=== PATIENT | male | born 1960 | race Caucasian/White ===

== ENCOUNTER 2016-07-24 15:07 | Inpatient (IN) | payer MEDICAID ==
--- NOTE | 2016-07-24 16:06 | C.PDOC ---
History Of Present Illness 55M c/o "depression." his helped provide hx- says his psych Dr Prakash changed his medication recently but it still is not working so he instructed them to come to the hospital. says he has "talking to himself." he denies any suicidal ideation. Time Seen by Provider: 07/24/16 15:41 Chief Complaint (Nursing): Psychiatric Evaluation Past Medical History Vital Signs: Last Vital Signs Temp 98 F 07/24/16 15:18 Pulse 103 H 07/24/16 15:18 Resp 24 07/24/16 16:49 BP 114/77 07/24/16 15:18 Pulse Ox 100 07/24/16 16:18 - Medical History PMH: Bipolar Disorder (on cogentin and haldol but denied), Depression, Hypercholesterolemia Denies: Diabetes, Hepatitis, HIV, HTN, Chronic Kidney Disease, Seizures, Sexually Transmitted Disease Family History: States: Unknown Family Hx - Social History Hx Alcohol Use: No Hx Substance Use: No - Immunization History Hx Tetanus Toxoid Vaccination: No Hx Influenza Vaccination: No Hx Pneumococcal Vaccination: No Review Of Systems Except As Marked, All Systems Reviewed And Found Negative. Constitutional: Negative for: Fever, Chills Eyes: Negative for: Vision Change Cardiovascular: Negative for: Chest Pain Respiratory: Negative for: Cough, Shortness of Breath Gastrointestinal: Negative for: Vomiting, Abdominal Pain Genitourinary: Negative for: Dysuria Neurological: Negative for: Weakness, Numbness, Headache Psych: Positive for: Anxiety, Depression. Negative for: Suicidal ideation Physical Exam - Physical Exam Appears: Non-toxic, No Acute Distress Skin: Warm, Dry Head: Atraumatic Eye(s): bilateral: PERRL Nose: No Epistaxis Oral Mucosa: Moist Lips: No Swelling Neck: Normal ROM Cardiovascular: Rhythm Regular Respiratory: No Decreased Breath Sounds, No Accessory Muscle Use, No Rales, No Rhonchi, No Stridor, No Wheezing Gastrointestinal/Abdominal: Soft, No Tenderness Extremity: No Swelling Neurological/Psych: Oriented x3, Other (no focal deficits) ED Course And Treatment - Laboratory Results Result Diagrams: 07/24/16 16:38 07/24/16 16:38 O2 Sat by Pulse Oximetry: 100 Medical Decision Making Medical Decision Making: cxr- nad ecg- nsr 73, nl axis, nl int, no acute ischemia Disposition - Disposition Disposition: HOSPITALIZED Disposition Time: 17:19 Condition: STABLE - Clinical Impression Clinical Impression: Depression
[2016-07-24 16:42] LABS: BASO # 0.1 K/uL (0.0-0.2); EOS # 0.3 K/uL (0.0-0.7); EOS % 3.4 % (0.0-4.0); HEMATOCRIT 46.3 % (35.0-51.0); LYMPH # 2.2 K/uL (1.0-4.3); LYMPH % 28.4 % (20.0-40.0); MEAN CELL VOLUME 84.7 fL (80.0-94.0); MEAN CORPUSCULAR HEMOGLOBIN 27.9 pg (27.0-31.0); MEAN PLATELET VOLUME 6.1 fL (7.2-11.7); MONO # 0.8 K/uL (0.0-0.8); RED CELL DISTRIBUTION WIDTH 13.6 % (11.5-14.5); WHITE BLOOD COUNT 7.9 K/uL (4.8-10.8)
--- NOTE | 2016-07-24 16:47 | RAD ---
HISTORY: psych COMPARISON: 12/12/2015 FINDINGS: LUNGS: The previously referenced small rounded nodular density at the lateral aspect of the right lower lung zone there is less conspicuous on this exam. Not aware of any a follow-up CT chest imaging as was previously referenced PLEURA: No significant pleural effusion identified, no pneumothorax apparent. CARDIOVASCULAR: Normal. OSSEOUS STRUCTURES: No significant abnormalities. VISUALIZED UPPER ABDOMEN: Normal. OTHER FINDINGS: None. IMPRESSION: No active disease.
[2016-07-24 16:50] LABS: CHLORIDE 99 mmol/L (98-107); POTASSIUM 4.5 mmol/L (3.6-5.2); SODIUM 134 mmol/L (132-148)
[2016-07-24 16:52] LABS: BILIRUBIN,TOTAL 0.7 mg/dL (0.2-1.3); GFR AFRICAN-AMERICAN > 60
[2016-07-24 16:53] LABS: ALB/GLOB RATIO 1.5 (1.0-2.1); ALKALINE PHOSPHATASE 47 U/L (38-126); ALT/SGPT 19 U/L (21-72); AST/SGOT 16 U/L (17-59); BLOOD UREA NITROGEN 18 mg/dL (9-20); CALCIUM 9.6 mg/dl (8.6-10.4); CARBON DIOXIDE 23 mmol/L (22-30); GLUCOSE,RANDOM 90 mg/dL (75-110); TOTAL PROTEIN 7.7 g/dL (6.3-8.3)
[2016-07-24 16:54] LABS: ALCOHOL SERUM < 10 mg/dl (0-10)
[2016-07-24 17:44] LABS: RBC URINE 1 /hpf (0-3); TRANSITIONAL EPITHIAL < 1 /hpf (0-3); URINE BACTERIA RARE (<OCC); URINE BILIRUBIN NEGATIVE (NEGATIVE); URINE BLOOD NEGATIVE (NEGATIVE); URINE COLOR Yellow (YELLOW); URINE GLUCOSE (UA) NORMAL (Normal); URINE KETONE NEGATIVE (NEGATIVE); URINE LEUKOCYTE ESTERASE NEG Leu/uL (Negative); URINE PROTEIN NEGATIVE (NEGATIVE); URINE UROBILINOGEN NORMAL mg/dL (0.2-1.0); WBC URINE 1 /hpf (0-5)
--- NOTE | 2016-07-25 10:02 | PCM.PSYCH ---
Initial Psychiatric Evaluation - Initial Psychiatric Evaluation Type of Admission: Voluntary Legal Status: Capacity Chief Complaint (in patient's own words): I am having bad thoughts. History of Present Illness and Precipitating Events: Patient is a 55 years old [place] male, who is and lives with his . He doesn't have any children. Patient was escorted to the hospital by because he was feeling extremely depressed, and delusional. As per the he has been taking to himself for the past 12 hours and telling himself to kill himself. Pt appeared disorganized and internally preoccupied. He remained superficially cooperative abut guarded about the details. As per the , he has not been able to sleep for the past 5 days and has been talking to himself continuously. He has become extremely depressed, isolative, and delusional since the past 2 weeks. It seems like he is having a conversation with an imaginary person. He sees Dr. Prakash every two months, most recently few weeks ago. He says the medications he is prescribing for depression, anxiety, and sleep are not working. He does not know the name of the medications. Patient feels like he wants to because he does not want to suffer anymore. He has never had any suicide attempts and has no plan. However, pt remained guarded about the voices but says he gets bad thoughts about the God. He thinks that he gets bad thoughts from devils and started reiterating about the bad thoughts. Patient was hospitalized last year to rule out interracial complications of his medical condition, neurofibromatosis. Patient denies any visual hallucinations or paranoid thoughts. Patient does not drink, smoke or use any illicit drugs. Patient denies any homicidal ideation. Allergies: denies PMH: Neurofibromatosis Current Medications: Active Medications Generic Name Dose Route Start Last Admin Trade Name Freq PRN Reason Stop Dose Admin Amitriptyline HCl 50 mg 07/24/16 22:45 07/24/16 22:55 Elavil PO Not Given HS RICHI Aripiprazole 5 mg 07/25/16 10:00 07/25/16 09:59 Abilify PO 5 mg DAILY RICHI Administration Clonazepam 0.5 mg 07/25/16 10:00 07/25/16 09:59 Klonopin PO 0.5 mg BID RICHI Administration Hydroxyzine HCl 25 mg 07/24/16 22:32 Atarax PO Q4H PRN Anxiety Ibuprofen 600 mg 07/24/16 22:32 Motrin Tab PO Q6H PRN Pain, moderate (4-7) Lorazepam 1 mg 07/24/16 19:08 07/24/16 19:11 Ativan PO 1 mg Q6 PRN Administration Anxiety Trazodone HCl 50 mg 07/24/16 22:32 Desyrel PO HS PRN Insomnia Past Psychiatric History - Past Psychiatric History Previous Treatment History: None Pertinent Medical Hx (Current Medical&Sleep Prob, Allergies): Allergies Allergy/AdvReac Type Severity Reaction Status Date / Time No Known Allergies Allergy Verified 07/24/16 15:20 ALPRAZolam [Xanax] 0.25 mg PO TID PRN #10 tab 07/23/15 Simvastatin 40 mg PO HS 07/23/15 Amitriptyline [Elavil] 50 mg PO HS 07/24/16 Review of Systems - Review of Systems All systems: reviewed and no additional remarkable complaints except - Psychiatric Psychiatric: Anxiety, Auditory Hallucinations, Depression, Irritability, Paranoia, Suicidal Ideation, Visual Hallucinations Mental Status Examination - Personal Presentation Personal Presentation: Looks older than stated age - Motor Activity Motor Activity: Psychomotor Retardation - Reliability in Providing Information Reliability in Providing Information: Poor, due to alteration in thoughts, Poor , due to altered mood - Speech Speech: Disorganized - Mood Mood: Depressed, Anxious - Formal Thought Process Formal Thought Process: Hallucinations, Delusions, Paranoia, Loosening of associations - Hallucinations/Delusions Hallucinations: Visual, Auditory Delusions: Persecution - Obsessions/Compulsions Obsessions: No Compulsions: No - Cognitive Functions Orientation: Person, Place, Situation, Time Sensorium: Alert Attention/Concentration: Attentive Abstract Thinking: [place] Estimate of Intelligence: Below average Judgement: Imparied, as evidence by: Poor judgement, Imparied, as evidence by: Lack of insight into illness - Risk Risk: Suicidal, Diminished functioning - Strength & Assets Inventory Strength & Assets Inventory: Family support DSM 5 DX - DSM 5 DSM 5 Diagnosis: Major depressive disorder recurrent severe without psychotic features r/o Schizoaffective disorder depressed type - Recommended/Plan of Treatment Treatment Recommendations and Plan of Treatment: Major depressive disorder recurrent severe without psychotic features r/o Schizoaffective disorder depressed type CBT Psychoeducation Supportive therapy and group therapy Start abilify 5 mg PO QHS Start gabapentin 100 mg po tid Start trazodone 50 gm PO QHS Continue Elavil 50 mg PO QHS D/C Xanax 2 mg PO BID Neurofibromatosis Monitor signs and symptoms - Smoking Cessation Smoking Cessation Initiated: No
--- NOTE | 2016-07-26 22:01 | PCM.PYCHPN ---
Psychiatric Progress Note - Psychiatric Progress Note Patient seen today, length of contact: 16 min Patient Chief Complaint: I am feeling depressed Problems Identified/Issues Discussed: Patient seen and evaluated, chart reviewed and discussed with the nurse. Patient remained disorganized and internally preoccupied. Patient remained isolated, confined and withdrawn. Patient still appears paranoid and delusional. He reports depressed mood and at times feelings of hopelessness and helplessness. But denies any suicidal ideation or homicidal ideation. He is taking medications and denied any side effects Supportive therapy and psychoeducation were given. Medication Change: Yes (strat risperdal, increase abilify) Medical Record Reviewed: Yes Mental Status Examination - Cognitive Function Orientation: Person, Place, Situation, Time Memory: Intact Attention: WNL Concentration: Poor Association: Loose Fund of Knowledge: Poor - Mood Mood: Depressed, Anxious - Speech Speech: Soft - Formal Thought Process Formal Thought Process: Hallucinations, Delusions, Paranoia, Loosening of associations - Suicidal Ideation Suicidal Ideation: No - Homicidal Ideation Homicidal Ideation: No Goal/Treatment Plan - Goal/Treatment Plan Need for Continued Stay: Discharge may exacerbated symptoms, Severe functional impairment Progress Toward Problem(s) and Goals/Treatment Plan: Major depressive disorder recurrent severe without psychotic features r/o Schizoaffective disorder depressed type CBT Psychoeducation Supportive therapy and group therapy Increase abilify to 15 mg PO QHS Increase gabapentin 300 mg po tid trazodone 50 gm PO QHS Continue Elavil 50 mg PO QHS Start Risperdal 2 mg PO QHS Start cogentin 1 mg pO BID Neurofibromatosis Monitor signs and symptoms - Smoking Cessation Smoking Cessation Initiated: No
--- NOTE | 2016-07-27 08:44 | PCM.PYCHPN ---
Psychiatric Progress Note - Psychiatric Progress Note Patient seen today, length of contact: 16 min Patient Chief Complaint: I am feeling depressed Problems Identified/Issues Discussed: Patient seen and evaluated, chart reviewed and discussed with the nurse. As per the staff patient appeared more organized but remained internally preoccupied. Patient remained isolated, confined and withdrawn. Patient still appears paranoid and delusional. He reports improvement in his mood but remained depressed and reports poor sleep. He also reports at times anxiety and irritability but denies any denies any suicidal ideation or homicidal ideation. His taking medication and denied any side effects Supportive therapy and psychoeducation were given. Medication Change: Yes (strat risperdal, increase abilify, increase trazodone) Medical Record Reviewed: Yes Mental Status Examination - Cognitive Function Orientation: Person, Place, Situation, Time Memory: Intact Attention: WNL Concentration: Poor Association: Loose Fund of Knowledge: Poor - Mood Mood: Depressed, Anxious - Speech Speech: Soft - Formal Thought Process Formal Thought Process: Hallucinations, Delusions, Paranoia, Loosening of associations - Suicidal Ideation Suicidal Ideation: No - Homicidal Ideation Homicidal Ideation: No Goal/Treatment Plan - Goal/Treatment Plan Need for Continued Stay: Discharge may exacerbated symptoms, Severe functional impairment Progress Toward Problem(s) and Goals/Treatment Plan: Major depressive disorder recurrent severe without psychotic features r/o Schizoaffective disorder depressed type CBT Psychoeducation Supportive therapy and group therapy abilify 15 mg PO QHS gabapentin 300 mg po tid trazodone 100 gm PO QHS DC Elavil 50 mg PO QHS Risperdal 2 mg PO QHS cogentin 1 mg pO BID Neurofibromatosis Monitor signs and symptoms - Smoking Cessation Smoking Cessation Initiated: No
[2016-07-28] MEDS ORDERED: Magnesium Hydroxide Susp 30 ml UD PO PRN (17:00)
--- NOTE | 2016-07-29 09:46 | CP.PCM.CON ---
<Edy Tran - Last Filed: 07/29/16 13:45> History of Present Illness - History of Present Illness History of Present Illness: PGY2 on medicine Dr. العلي service: 55M PMHx bipolar, depression, NF and HLD was escorted to hospital by due to depression and suicidal ideation. Pt was admitted to psych floor. Per RN, pt was able to walk around and converse normally. However, this morning pt was found to exhibit generalized weakness as well as brief disorientation, where he did not remember the year. Pt later reoriented himself later and was able to answer questions appropriately. Pt was able to move his lower extremity with difficulties. Pt never had these symptoms before. Pt also complains bilateral groin pain when he is doing so. Denied chest pain, SOB, palpitations. Pt was taking Risperadole and was stopped. Pt Abilify was reduced and started Cogentin per Psych. Review of Systems - Constitutional Constitutional: Weakness. absent: Chills, Excessive Sweating, Night Sweats - EENT Eyes: absent: Change in Vision - Cardiovascular Cardiovascular: absent: Chest Pain, Dyspnea - Respiratory Respiratory: absent: Cough, Wheezing - Gastrointestinal Gastrointestinal: absent: Abdominal Pain, Constipation, Dysphagia, Nausea, Vomiting - Genitourinary Genitourinary: absent: Dysuria, Pyuria - Musculoskeletal Musculoskeletal: Back Pain, Muscle Weakness, Myalgias - Neurological Neurological: Lack of Coordination, Weakness. absent: Dizziness, Numbness Past Patient History - Infectious Disease Hx of Infectious Diseases: None - Past Medical History & Family History Past Medical History?: Yes - Past Social History Smoking Status: Never Smoked - CARDIAC Hx Hypercholesterolemia: Yes Hx Hypertension: No - PULMONARY Hx Tuberculosis: No - NEUROLOGICAL Hx Seizures: No - HEENT Hx HEENT Problems: No - RENAL Hx Chronic Kidney Disease: No - ENDOCRINE/METABOLIC Hx Endocrine Disorders: No - HEMATOLOGICAL/ONCOLOGICAL Hx Human Immunodeficiency Virus (HIV): No - INTEGUMENTARY Hx Dermatological Problems: No Other/Comment: neurofibriomotosis - MUSCULOSKELETAL/RHEUMATOLOGICAL Hx Musculoskeletal Disorders: No Hx Falls: No - GASTROINTESTINAL Hx Gastrointestinal Disorders: No - GENITOURINARY/GYNECOLOGICAL Hx Sexually Transmitted Disorders: No - PSYCHIATRIC Hx Substance Use: No - SURGICAL HISTORY Hx Surgeries: No - ANESTHESIA Hx Anesthesia: No Meds Allergies/Adverse Reactions: Allergies Allergy/AdvReac Type Severity Reaction Status Date / Time No Known Allergies Allergy Verified 07/24/16 15:20 - Medications Medications: Current Medications Aripiprazole (Abilify) 10 mg PO DAILY [facility] Benztropine Mesylate (Cogentin) 1 mg PO HS [facility] Last Admin: 07/28/16 21:45 Dose: 1 mg Clonazepam (Klonopin) 0.5 mg PO BID [facility] Last Admin: 07/28/16 17:37 Dose: 0.5 mg Gabapentin (Neurontin) 300 mg PO TID [facility] Last Admin: 07/28/16 17:38 Dose: 300 mg Hydroxyzine HCl (Atarax) 25 mg PO Q4H PRN PRN Reason: Anxiety Last Admin: 07/29/16 00:53 Dose: 25 mg Ibuprofen (Motrin Tab) 600 mg PO Q6H PRN PRN Reason: Pain, moderate (4-7) Lorazepam (Ativan) 1 mg PO Q6 PRN PRN Reason: Anxiety Last Admin: 07/24/16 19:11 Dose: 1 mg Magnesium Hydroxide (Milk Of Magnesia) 30 ml PO Q12H PRN PRN Reason: Constipation Pantoprazole Sodium (Protonix Ec Tab) 40 mg PO DAILY [facility] Trazodone HCl (Desyrel) 100 mg PO [facility] Last Admin: 07/28/16 21:45 Dose: 100 mg Physical Exam - Constitutional Appears: Non-toxic, No Acute Distress, Chronically Ill - Respiratory Exam Respiratory Exam: Clear to Auscultation Bilateral, NORMAL BREATHING PATTERN. absent: Rhonchi, Wheezes - Cardiovascular Exam Cardiovascular Exam: +S1, +S2. absent: Gallop, Rubs - GI/Abdominal Exam GI & Abdominal Exam: Normal Bowel Sounds, Soft. absent: Tenderness - Extremities Exam Extremities exam: Negative for: pedal edema, tenderness - Neurological Exam Neurological exam: Alert, Oriented x3 Additional comments: Strength 2/5 in all extremities, sensations intact - Psychiatric Exam Psychiatric exam: Flat Affect - Skin Skin Exam: Intact Additional comments: numerous neurofibromas covering his body Results - Vital Signs Recent Vital Signs: Last Vital Signs Temp 98.1 F 07/28/16 08:06 Pulse 100 H 07/28/16 18:27 Resp 18 07/28/16 08:06 BP 121/79 07/28/16 18:27 Pulse Ox 99 07/28/16 08:06 - Labs Result Diagrams: 07/29/16 11:10 07/29/16 11:10 Assessment & Plan - Assessment and Plan (Free Text) Assessment: Weakness Transfer to tele. All psych meds on hold except Ativan PRN. NS@100ml/hr. F/U CT head. F/U CBC, CMP, mg, phos, lyme titer, TSH, d dimer. Suicidal ideation 1:1 precautions. Ativan PRN. <Ángel العلي H - Last Filed: 07/30/16 07:15> Meds - Medications Medications: Current Medications Aripiprazole (Abilify) 10 mg PO DAILY [facility] Last Admin: 07/29/16 18:02 Dose: Not Given Benztropine Mesylate (Cogentin) 1 mg PO HS [facility] Last Admin: 07/28/16 21:45 Dose: 1 mg Clonazepam (Klonopin) 0.5 mg PO BID [facility] Last Admin: 07/28/16 17:37 Dose: 0.5 mg Gabapentin (Neurontin) 300 mg PO TID [facility] Last Admin: 07/28/16 17:38 Dose: 300 mg Hydroxyzine HCl (Atarax) 25 mg PO Q4H PRN PRN Reason: Anxiety Last Admin: 07/29/16 00:53 Dose: 25 mg Sodium Chloride (Sodium Chloride 0.9%) 1,000 mls @ 100 mls/hr IV .Q10H [facility] Last Admin: 07/30/16 07:04 Dose: Not Given Ibuprofen (Motrin Tab) 600 mg PO Q6H PRN PRN Reason: Pain, moderate (4-7) Last Admin: 07/29/16 23:26 Dose: 600 mg Lorazepam (Ativan) 1 mg PO Q6 PRN PRN Reason: Anxiety Last Admin: 07/24/16 19:11 Dose: 1 mg Magnesium Hydroxide (Milk Of Magnesia) 30 ml PO Q12H PRN PRN Reason: Constipation Pantoprazole Sodium (Protonix Ec Tab) 40 mg PO DAILY [facility] Last Admin: 07/29/16 18:03 Dose: 40 mg Trazodone HCl (Desyrel) 100 mg PO HS [facility] Last Admin: 07/28/16 21:45 Dose: 100 mg Results - Vital Signs Recent Vital Signs: Last Vital Signs Temp 98.6 F 07/30/16 00:00 Pulse 91 H 07/30/16 06:40 Resp 14 07/30/16 06:40 BP 121/74 07/30/16 04:39 Pulse Ox 92 L 07/29/16 19:00 - Labs Result Diagrams: 07/30/16 05:54 07/30/16 05:54 Labs: Laboratory Results - last 24 hr 07/29/16 07/29/16 07/29/16 11:10 11:10 11:10 WBC 12.9 H D RBC 5.35 Hgb 14.9 Hct 45.2 MCV 84.5 MCH 27.9 MCHC 33.0 RDW 13.6 Plt Count 316 MPV 6.1 L Neut % (Auto) 88.9 H Lymph % (Auto) 6.7 L [place] % (Auto) 3.9 Eos % (Auto) 0.1 Baso % (Auto) 0.4 Neut # 11.5 H Lymph # 0.9 L [place] # 0.5 Eos # 0.0 Baso # 0.1 Neutrophils % (Manual) 90 H Band Neutrophils % 1 Lymphocytes % (Manual) 6 L Monocytes % (Manual) 3 Toxic Granulation Present Platelet Estimate Normal Anisocytosis (manual) Slight PT INR APTT D-Dimer, Quantitative Sodium 133 Potassium 4.7 Chloride 99 Carbon Dioxide 23 Anion Gap 16 BUN 10 Creatinine 0.8 Est GFR ( Amer) > 60 Est GFR (Non-Af Amer) > 60 Random Glucose 96 Calcium 9.2 Phosphorus 3.3 Magnesium 2.1 Total Bilirubin 0.8 AST 40 ALT 22 Alkaline Phosphatase 49 Total Creatine Kinase 1247 H CK-MB (Mass) 6.10 H Troponin I, Quant < 0.0120 Total Protein 7.6 Albumin 4.5 Globulin 3.1 Albumin/Globulin Ratio 1.4 TSH 3rd Generation 2.15 07/29/16 07/30/16 07/30/16 23:40 05:54 05:54 WBC 8.5 RBC 4.82 Hgb 13.9 Hct 40.8 MCV 84.5 MCH 28.8 MCHC 34.0 RDW 13.7 Plt Count 287 MPV 6.1 L Neut % (Auto) 60.5 Lymph % (Auto) 25.6 [place] % (Auto) 8.8 Eos % (Auto) 4.1 H Baso % (Auto) 1.0 Neut # 5.1 Lymph # 2.2 [place] # 0.7 Eos # 0.3 Baso # 0.1 Neutrophils % (Manual) Band Neutrophils % Lymphocytes % (Manual) Monocytes % (Manual) Toxic Granulation Platelet Estimate Anisocytosis (manual) PT 12.0 INR 1.1 APTT 32 D-Dimer, Quantitative < 200 Sodium Potassium Chloride Carbon Dioxide Anion Gap BUN Creatinine Est GFR ( Amer) Est GFR (Non-Af Amer) Random Glucose Calcium Phosphorus Magnesium Total Bilirubin AST ALT Alkaline Phosphatase Total Creatine Kinase CK-MB (Mass) Troponin I, Quant Total Protein Albumin Globulin Albumin/Globulin Ratio [facility] 3rd Generation 07/30/16 05:54 WBC RBC Hgb Hct MCV MCH MCHC RDW Plt Count MPV Neut % (Auto) Lymph % (Auto) [place] % (Auto) Eos % (Auto) Baso % (Auto) Neut # Lymph # [place] # Eos # Baso # Neutrophils % (Manual) Band Neutrophils % Lymphocytes % (Manual) Monocytes % (Manual) Toxic Granulation Platelet Estimate Anisocytosis (manual) PT INR APTT D-Dimer, Quantitative Sodium 131 L Potassium 4.0 Chloride 100 Carbon Dioxide 21 L Anion Gap 14 BUN 12 Creatinine 0.7 L Est GFR ( Amer) > 60 Est GFR (Non-Af Amer) > 60 Random Glucose 87 Calcium 8.7 Phosphorus Magnesium Total Bilirubin 0.9 AST 134 H D ALT 43 Alkaline Phosphatase 46 Total Creatine Kinase 8831 H CK-MB (Mass) Troponin I, Quant Total Protein 6.5 Albumin 3.6 Globulin 2.9 Albumin/Globulin Ratio 1.3 [facility] 3rd [facility] Attending/Attestation - Attestation I have personally seen and examined this patient.: Yes I have fully participated in the care of the patient.: Yes I have reviewed all pertinent clinical information: Yes Notes (Text): Medical Attending: Patient was seen and examined by me. Agree with the above note by the resident. The patient was seen on 5E after we were notified that yesterday he was ambulating and participating with activites however then became bedbound for no clear reason. It does appear he was started on new medication recently in 5E so will hold these, check head CT, check lab work. Start IVF I later spoke with the patient's family at bedside. 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 They were more concerned about his depression and anxiety. They explain it has been an ongoing struggle for the patient. I explained to them that hopefully if he becomes more awake and alert after holding medications he maybe able to return to psychiatry unit. Ángel العلي
[2016-07-29] MEDS ORDERED: Sodium Chloride 0.9% 1,000 ML IV SCH (10:45)
[2016-07-29] MEDS: Sodium Chloride 0.9% 1,000 ML IV SCH (11:03)
--- NOTE | 2016-07-29 11:13 | CT ---
PROCEDURE: CT HEAD WITHOUT CONTRAST. HISTORY: new onset weakness COMPARISON: MRI brain dated 10/19/2015 TECHNIQUE: Axial computed tomography images were obtained through the head/brain without intravenous contrast. Radiation dose: Total exam DLP = 975 mGy-cm. This CT exam was performed using one or more of the following dose reduction techniques: Automated exposure control, adjustment of the mA and/or kV according to patient size, and/or use of iterative reconstruction technique. FINDINGS: HEMORRHAGE: No intracranial hemorrhage. BRAIN: Scattered focal lucencies in the subcortical and periventricular white matter suggestive for chronic microvascular ischemic change. Persistent 6 millimeter rounded hypodensity in the anterior left frontal lobe which may represent a chronic lacunar infarct. VENTRICLES: Unremarkable. No hydrocephalus. CALVARIUM: Unremarkable. PARANASAL SINUSES: Unremarkable as visualized. No significant inflammatory changes. MASTOID AIR CELLS: Unremarkable as visualized. No inflammatory changes. OTHER FINDINGS: Soft tissue nodular densities emanating from the anterior subcutaneous soft tissues measuring up to 9 millimeters. IMPRESSION: No acute intracranial abnormality. Mild chronic microvascular ischemic change. Stable 6 millimeter hypodensity in the anterior left frontal lobe which may represent chronic lacunar infarct. If focal neurologic deficit persists, consider MRI.
[2016-07-29 11:33] LABS: BASO # 0.1 K/uL (0.0-0.2); BASO % 0.4 % (0.0-2.0); EOS % 0.1 % (0.0-4.0); HEMATOCRIT 45.2 % (35.0-51.0); LYMPH # 0.9 K/uL (1.0-4.3); LYMPH % 6.7 % (20.0-40.0); MEAN CELL VOLUME 84.5 fL (80.0-94.0); MEAN CORPUSCULAR HEMOGLOBIN 27.9 pg (27.0-31.0); MEAN PLATELET VOLUME 6.1 fL (7.2-11.7); MONO # 0.5 K/uL (0.0-0.8); MONO % 3.9 % (0.0-10.0); NRBC % 0.4 % (0.0-2.0); PLATELET COUNT 316 K/uL (130-400); RED CELL DISTRIBUTION WIDTH 13.6 % (11.5-14.5)
[2016-07-29 11:36] LABS: CHLORIDE 99 mmol/L (98-107); SODIUM 133 mmol/L (132-148)
[2016-07-29 11:37] LABS: POTASSIUM 4.7 mmol/L (3.6-5.2)
[2016-07-29 11:38] LABS: GFR AFRICAN-AMERICAN > 60
[2016-07-29 11:39] LABS: ALB/GLOB RATIO 1.4 (1.0-2.1); ALKALINE PHOSPHATASE 49 U/L (38-126); ALT/SGPT 22 U/L (21-72); AST/SGOT 40 U/L (17-59); BILIRUBIN,TOTAL 0.8 mg/dL (0.2-1.3); BLOOD UREA NITROGEN 10 mg/dL (9-20); CALCIUM 9.2 mg/dl (8.6-10.4); CARBON DIOXIDE 23 mmol/L (22-30); GLUCOSE,RANDOM 96 mg/dL (75-110); MAGNESIUM 2.1 mg/dL (1.6-2.3); PHOSPHOROUS 3.3 mg/dL (2.5-4.5); TOTAL PROTEIN 7.6 g/dL (6.3-8.3); WHITE BLOOD COUNT 12.9 K/uL (4.8-10.8)
[2016-07-29 12:09] LABS: NEUTROPHIL 90 % (50-75); THYROID STIMULATING HORMONE 2.15 mIU/L (0.46-4.68); TOTAL CELLS COUNTED 100
[2016-07-29] MEDS: Pantoprazole 40 mg EC Tab PO SCH (18:03)
--- NOTE | 2016-07-29 18:15 | CARD ---
APPROVED REPORT EKG Measurement Heart [id number] <Conclusion> Normal sinus rhythm Normal ECG
[2016-07-29 23:55] LABS: INR 1.1
[2016-07-30] MEDS: Sodium Chloride 0.9% 1,000 ML IV SCH ×7 (01:29→23:00)
[2016-07-30 06:06] LABS: BASO # 0.1 K/uL (0.0-0.2); EOS # 0.3 K/uL (0.0-0.7); EOS % 4.1 % (0.0-4.0); HEMATOCRIT 40.8 % (35.0-51.0); LYMPH # 2.2 K/uL (1.0-4.3); LYMPH % 25.6 % (20.0-40.0); MEAN CELL VOLUME 84.5 fL (80.0-94.0); MEAN CORPUSCULAR HEMOGLOBIN 28.8 pg (27.0-31.0); MEAN PLATELET VOLUME 6.1 fL (7.2-11.7); MONO # 0.7 K/uL (0.0-0.8); MONO % 8.8 % (0.0-10.0); NRBC % 0.1 % (0.0-2.0); RED CELL DISTRIBUTION WIDTH 13.7 % (11.5-14.5); WHITE BLOOD COUNT 8.5 K/uL (4.8-10.8)
[2016-07-30 06:22] LABS: CHLORIDE 100 mmol/L (98-107); SODIUM 131 mmol/L (132-148)
[2016-07-30 06:24] LABS: ALB/GLOB RATIO 1.3 (1.0-2.1); ALKALINE PHOSPHATASE 46 U/L (38-126); AST/SGOT 134 U/L (17-59); BILIRUBIN,TOTAL 0.9 mg/dL (0.2-1.3); BLOOD UREA NITROGEN 12 mg/dL (9-20); CARBON DIOXIDE 21 mmol/L (22-30); GFR AFRICAN-AMERICAN > 60; TOTAL PROTEIN 6.5 g/dL (6.3-8.3)
[2016-07-30 06:25] LABS: ALT/SGPT 43 U/L (21-72); CALCIUM 8.7 mg/dl (8.6-10.4); GLUCOSE,RANDOM 87 mg/dL (75-110)
[2016-07-30] MEDS: Pantoprazole 40 mg EC Tab PO SCH (09:12)
[2016-07-30 10:40] LABS: RBC URINE 2 /hpf (0-3); URINE BILIRUBIN NEGATIVE (NEGATIVE); URINE BLOOD NEGATIVE (NEGATIVE); URINE COLOR Yellow (YELLOW); URINE GLUCOSE (UA) NORMAL (Normal); URINE HYALINE CAST 0-2 /lpf (0-2); URINE KETONE NEGATIVE (NEGATIVE); URINE LEUKOCYTE ESTERASE NEG Leu/uL (Negative); URINE PROTEIN NEGATIVE (NEGATIVE); URINE UROBILINOGEN NORMAL mg/dL (0.2-1.0); WBC URINE 1 /hpf (0-5)
--- NOTE | 2016-07-30 11:53 | CP.PCM.PN ---
<Esme Zelaya - Last Filed: 07/30/16 14:51> Subjective - Date & Time of Evaluation Date of Evaluation: 07/30/16 Time of Evaluation: 07:20 - Subjective Subjective: Patient seen and examined at bedside this morning. He was resting comfortably in bed. After waking up he was oriented. He reports weakness and pain in all extremities. He denied all other complains such a fever, chills, SOB, chest pain , palpitations. He has been able to urinate and reports his urine to be dark yellow. He is eating but very little. His was present at bedside. Objective - Vital Signs/Intake and Output Vital Signs (last 24 hours): Temp Pulse Resp BP Pulse Ox 98.6 F 91 H 14 121/74 92 L 07/30/16 00:00 07/30/16 06:40 07/30/16 06:40 07/30/16 04:39 07/29/16 19:00 Intake and Output: 07/30/16 07/30/16 06:59 18:59 Intake Total 1318 Balance 1318 - Medications Medications: Current Medications Aripiprazole (Abilify) 10 mg PO DAILY [facility] Last Admin: 07/29/16 18:02 Dose: Not Given Benztropine Mesylate (Cogentin) 1 mg PO HS [facility] Last Admin: 07/28/16 21:45 Dose: 1 mg Clonazepam (Klonopin) 0.5 mg PO BID [facility] Last Admin: 07/28/16 17:37 Dose: 0.5 mg Gabapentin (Neurontin) 300 mg PO TID [facility] Last Admin: 07/28/16 17:38 Dose: 300 mg Hydroxyzine HCl (Atarax) 25 mg PO Q4H PRN PRN Reason: Anxiety Last Admin: 07/29/16 00:53 Dose: 25 mg Sodium Chloride (Sodium Chloride 0.9%) 1,000 mls @ 200 mls/hr IV .Q5H [facility] Last Admin: 07/30/16 08:00 Dose: 200 mls/hr Ibuprofen (Motrin Tab) 600 mg PO Q6H PRN PRN Reason: Pain, moderate (4-7) Last Admin: 07/29/16 23:26 Dose: 600 mg Lorazepam (Ativan) 1 mg PO Q6 PRN PRN Reason: Anxiety Last Admin: 07/24/16 19:11 Dose: 1 mg Magnesium Hydroxide (Milk Of Magnesia) 30 ml PO Q12H PRN PRN Reason: Constipation Pantoprazole Sodium (Protonix Ec Tab) 40 mg PO DAILY [facility] Last Admin: 07/30/16 09:12 Dose: 40 mg Trazodone HCl (Desyrel) 100 mg PO HS [facility] Last Admin: 07/28/16 21:45 Dose: 100 mg - Labs Labs: 07/30/16 05:54 07/30/16 05:54 PT 12.0 SECONDS (9.7-12.2) 07/29/16 23:40 INR 1.1 07/29/16 23:40 APTT 32 SECONDS (21-34) 07/29/16 23:40 - Constitutional Appears: Non-toxic, No Acute Distress - Head Exam Head Exam: ATRAUMATIC, NORMAL INSPECTION - Eye Exam Eye Exam: EOMI, PERRL - ENT Exam ENT Exam: Mucous Membranes Moist - Respiratory Exam Respiratory Exam: Clear to Ausculation Bilateral, NORMAL BREATHING PATTERN. absent: Accessory Muscle Use, Rales, Wheezes, Respiratory Distress - Cardiovascular Exam Cardiovascular Exam: REGULAR RHYTHM, +S1, +S2 - GI/Abdominal Exam GI & Abdominal Exam: Soft, Normal Bowel Sounds. absent: Distended, Firm, Guarding, Tenderness - Extremities Exam Extremities Exam: Normal Inspection. absent: Tenderness - Back Exam Back Exam: NORMAL INSPECTION. absent: CVA tenderness (L), CVA tenderness (R), paraspinal tenderness - Neurological Exam Neurological Exam: Alert, Awake, Oriented x3 Neuro motor strength exam: Left Upper Extremity: 3, Right Upper Extremity: 3, Left Lower Extremity: 3, Right Lower Extremity: 3 - Psychiatric Exam Psychiatric exam: Normal Affect, Normal Mood - Skin Skin Exam: Dry, Intact, Normal Color, Warm Additional comments: many skin nodules Assessment and Plan - Assessment and Plan (Free Text) Assessment: Rhabdomyolysis CPK elevating 8831 up from 1247, will repeat this afternoon All psych meds on hold except Ativan PRN - likely medication induced NS@200 mls/hour CT head - no acute intracranial abnormality, mild microvascular iacemic changes , stable 6 mm hypodensity in the anterior left frontal lobe which 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 Ativan PRN. Per psych management, Dr. Deng <Ángel العلي H - Last Filed: 07/30/16 16:10> Objective - Vital Signs/Intake and Output Vital Signs (last 24 hours): Temp Pulse Resp BP Pulse Ox 98.2 F 82 20 120/64 99 07/30/16 12:00 07/30/16 12:00 07/30/16 12:00 07/30/16 12:00 07/30/16 12:00 Intake and Output: 07/30/16 07/30/16 06:59 18:59 Intake Total 1318 2120 Balance 1318 2120 - Medications Medications: Current Medications Aripiprazole (Abilify) 10 mg PO DAILY [facility] Last Admin: 07/29/16 18:02 Dose: Not Given Benztropine Mesylate (Cogentin) 1 mg PO HS [facility] Last Admin: 07/28/16 21:45 Dose: 1 mg Clonazepam (Klonopin) 0.5 mg PO BID [facility] Last Admin: 07/28/16 17:37 Dose: 0.5 mg Gabapentin (Neurontin) 300 mg PO TID [facility] Last Admin: 07/28/16 17:38 Dose: 300 mg Heparin Sodium (Porcine) (Heparin) 5,000 units SC Q12 [facility] Last Admin: 07/30/16 12:22 Dose: 5,000 units Hydroxyzine HCl (Atarax) 25 mg PO Q4H PRN PRN Reason: Anxiety Last Admin: 07/29/16 00:53 Dose: 25 mg Sodium Chloride (Sodium Chloride 0.9%) 1,000 mls @ 200 mls/hr IV .Q5H [facility] Last Admin: 07/30/16 14:40 Dose: 200 mls/hr Ibuprofen (Motrin Tab) 600 mg PO Q6H PRN PRN Reason: Pain, moderate (4-7) Last Admin: 07/29/16 23:26 Dose: 600 mg Lorazepam (Ativan) 1 mg PO Q6 PRN PRN Reason: Anxiety Last Admin: 07/24/16 19:11 Dose: 1 mg Magnesium Hydroxide (Milk Of Magnesia) 30 ml PO Q12H PRN PRN Reason: Constipation Pantoprazole Sodium (Protonix Ec Tab) 40 mg PO DAILY [facility] Last Admin: 07/30/16 09:12 Dose: 40 mg Trazodone HCl (Desyrel) 100 mg PO HS [facility] Last Admin: 07/28/16 21:45 Dose: 100 mg - Labs Labs: 07/30/16 05:54 07/30/16 05:54 PT 12.0 SECONDS (9.7-12.2) 07/29/16 23:40 INR 1.1 07/29/16 23:40 APTT 32 SECONDS (21-34) 07/29/16 23:40 Attending/Attestation - Attestation I have personally seen and examined this patient.: Yes I have fully participated in the care of the patient.: Yes I have reviewed all pertinent clinical information, including history, physical exam and plan: Yes Notes (Text): Medical attending: Patient was seen and examined by me, agrees the above note by back office medical assistant. The patient's family member was at bedside. We watched him walk in the hallway, he was also able to feed himself today and he was responding to questions. The head CT that we got was negative for any acute process This is a vast improvement in his mental status and ability since yesterday when we saw him over to 5 E. His CPK was high came back at 8600, were to increase his intravenous fluids at this time. As mentioned before reporting a lot of the psychiatry medications that he was given previously. It may be that he was having some sort of adverse reaction to one of these medications leading to the high CPK as well as weakness and pain that he was having before. Thank you so much, Ángel العلي
--- NOTE | 2016-07-30 14:23 | PCM.PYCHPN ---
Psychiatric Progress Note - Psychiatric Progress Note Patient seen today, length of contact: 16 min Patient Chief Complaint: I am feeling depressed Problems Identified/Issues Discussed: Patient seen and evaluated, chart reviewed and discussed with the nurse. Patient was transferred to ICU on Saturday as pt's HR went upto 150. He reports improvement in his mood but remained depressed and remained isolated, confined and withdrawn. He also reports at times anxiety and irritability but denies any suicidal ideation or homicidal ideation. His taking medication and denied any side effects. He still appear delusional and paranoid. Supportive therapy and psychoeducation were given. Medication Change: Yes (d/c risperdal) Medical Record Reviewed: Yes Mental Status Examination - Cognitive Function Orientation: Person, Place, Situation, Time Memory: Intact Attention: WNL Concentration: Poor Association: WNL Fund of Knowledge: Poor - Mood Mood: Depressed, Anxious - Speech Speech: Soft - Formal Thought Process Formal Thought Process: Hallucinations, Delusions, Paranoia - Suicidal Ideation Suicidal Ideation: No - Homicidal Ideation Homicidal Ideation: No Goal/Treatment Plan - Goal/Treatment Plan Need for Continued Stay: Discharge may exacerbated symptoms, Severe functional impairment Progress Toward Problem(s) and Goals/Treatment Plan: Major depressive disorder recurrent severe without psychotic features r/o Schizoaffective disorder depressed type CBT Psychoeducation Supportive therapy and group therapy abilify 10 mg PO QHS gabapentin 300 mg po tid trazodone 100 gm PO QHS D/CRisperdal 2 mg PO QHS Klonopin 0.5 mg PO BID Neurofibromatosis Monitor signs and symptoms - Smoking Cessation Smoking Cessation Initiated: No
[2016-07-31] MEDS: Sodium Chloride 0.9% 1,000 ML IV SCH ×7 (05:52→21:18)
[2016-07-31 07:27] LABS: 18 KD (IGG) BAND Nonreactive; 23 KD (IGG) BAND Nonreactive; 23 KD (IGM) BAND Nonreactive; 28 KD (IGG) BAND Nonreactive; 30 KD (IGG) BAND Nonreactive; 39 KD (IGG) BAND Nonreactive; 39 KD (IGM) BAND Nonreactive; 41 KD (IGG) BAND Nonreactive; 41 KD (IGM) BAND Nonreactive; 45 KD (IGG) BAND Nonreactive; 58 KD (IGG) BAND Nonreactive; 66 KD (IGG) BAND Nonreactive; 93 KD (IGG) BAND Nonreactive; LYME DISEASE INTERP (IGG) Negative (Negative)
[2016-07-31 07:39] LABS: BASO # 0.1 K/uL (0.0-0.2); BASO % 1.2 % (0.0-2.0); EOS # 0.6 K/uL (0.0-0.7); EOS % 9.2 % (0.0-4.0); HEMATOCRIT 40.5 % (35.0-51.0); LYMPH # 2.2 K/uL (1.0-4.3); LYMPH % 34.1 % (20.0-40.0); MEAN CELL VOLUME 84.5 fL (80.0-94.0); MEAN CORPUSCULAR HEMOGLOBIN 28.4 pg (27.0-31.0); MEAN CORPUSCULAR HGB CONC 33.6 g/dL (33.0-37.0); MEAN PLATELET VOLUME 6.3 fL (7.2-11.7); MONO # 0.5 K/uL (0.0-0.8); MONO % 8.2 % (0.0-10.0); RED CELL DISTRIBUTION WIDTH 13.7 % (11.5-14.5); WHITE BLOOD COUNT 6.4 K/uL (4.8-10.8)
[2016-07-31 07:53] LABS: CHLORIDE 103 mmol/L (98-107); SODIUM 134 mmol/L (132-148)
[2016-07-31 07:55] LABS: GFR AFRICAN-AMERICAN > 60
[2016-07-31 07:56] LABS: ALB/GLOB RATIO 1.3 (1.0-2.1); ALKALINE PHOSPHATASE 40 U/L (38-126); ALT/SGPT 41 U/L (21-72); AST/SGOT 75 U/L (17-59); BILIRUBIN,TOTAL 0.7 mg/dL (0.2-1.3); BLOOD UREA NITROGEN 9 mg/dL (9-20); CARBON DIOXIDE 22 mmol/L (22-30); GLUCOSE,RANDOM 77 mg/dL (75-110); PHOSPHOROUS 3.4 mg/dL (2.5-4.5); TOTAL PROTEIN 5.9 g/dL (6.3-8.3)
--- NOTE | 2016-07-31 08:42 | RAD ---
HISTORY: fluid overload COMPARISON: 07/24/2016 FINDINGS: LUNGS: Patchy increased markings at the left lung base and medial right infrahilar region suggestive for infiltrate and or atelectasis. Bilateral hilar prominence. PLEURA: As above. CARDIOVASCULAR: Tortuous aorta. Mild cardiomegaly. OSSEOUS STRUCTURES: No significant abnormalities. VISUALIZED UPPER ABDOMEN: Colonic interposition underneath the right hemidiaphragm. OTHER FINDINGS: None. IMPRESSION: Patchy increased markings at the left lung base and medial right infrahilar region suggestive for infiltrate and or atelectasis. Bilateral hilar prominence.
[2016-07-31] MEDS: Pantoprazole 40 mg EC Tab PO SCH (11:16)
[2016-07-31] MEDS: Magnesium Oxide 400 mg Tab UD PO SCH (11:46)
--- NOTE | 2016-07-31 11:59 | CP.PCM.PN ---
Subjective - Date & Time of Evaluation Date of Evaluation: 07/31/16 Time of Evaluation: 07:00 - Subjective Subjective: Patient seen and examined at bedside this morning. He reports weakness and pain in all extremities that greatly improved since yesterday. He is now able to slowly eat and walk around. He denied all other complains such a fever, chills, SOB, cough, chest pain, palpitations. He has been able to urinate and reports his urine to be dark yellow. Objective - Vital Signs/Intake and Output Vital Signs (last 24 hours): Temp Pulse Resp BP Pulse Ox 98.3 F 83 20 116/54 L 97 07/31/16 08:19 07/31/16 08:19 07/31/16 08:19 07/31/16 08:19 07/31/16 08:19 - Medications Medications: Current Medications Aripiprazole (Abilify) 10 mg PO DAILY [facility] Last Admin: 07/29/16 18:02 Dose: Not Given Benztropine Mesylate (Cogentin) 1 mg PO HS [facility] Last Admin: 07/28/16 21:45 Dose: 1 mg Clonazepam (Klonopin) 0.5 mg PO BID [facility] Last Admin: 07/28/16 17:37 Dose: 0.5 mg Gabapentin (Neurontin) 300 mg PO TID [facility] Last Admin: 07/28/16 17:38 Dose: 300 mg Heparin Sodium (Porcine) (Heparin) 5,000 units SC Q12 [facility] Last Admin: 07/31/16 11:16 Dose: 5,000 units Hydroxyzine HCl (Atarax) 25 mg PO Q4H PRN PRN Reason: Anxiety Last Admin: 07/29/16 00:53 Dose: 25 mg Sodium Chloride (Sodium Chloride 0.9%) 1,000 mls @ 200 mls/hr IV .Q5H [facility] Last Admin: 07/31/16 11:50 Dose: 200 mls/hr Ibuprofen (Motrin Tab) 600 mg PO Q6H PRN PRN Reason: Pain, moderate (4-7) Last Admin: 07/29/16 23:26 Dose: 600 mg Lorazepam (Ativan) 1 mg PO Q6 PRN PRN Reason: Anxiety Last Admin: 07/24/16 19:11 Dose: 1 mg Magnesium Oxide (Mag-Ox) 400 mg PO DAILY [facility] Last Admin: 07/31/16 11:46 Dose: 400 mg Pantoprazole Sodium (Protonix Ec Tab) 40 mg PO DAILY [facility] Last Admin: 07/31/16 11:16 Dose: 40 mg Tramadol HCl (Ultram) 25 mg PO TID PRN PRN Reason: Pain, moderate (4-7) Trazodone HCl (Desyrel) 100 mg PO HS [facility] Last Admin: 07/28/16 21:45 Dose: 100 mg Zinc Sulfate (Zinc Sulfate 220 Mg Cap) 220 mg PO DAILY [facility] Last Admin: 07/31/16 11:46 Dose: 220 mg - Labs Labs: 07/31/16 07:10 07/31/16 07:10 PT 12.0 SECONDS (9.7-12.2) 07/29/16 23:40 INR 1.1 07/29/16 23:40 APTT 32 SECONDS (21-34) 07/29/16 23:40 - Constitutional Appears: Non-toxic, No Acute Distress - Head Exam Head Exam: ATRAUMATIC, NORMAL INSPECTION - Eye Exam Eye Exam: EOMI, Normal appearance, PERRL Pupil Exam: NORMAL ACCOMODATION - ENT Exam ENT Exam: Mucous Membranes Moist - Neck Exam Neck Exam: Normal Inspection - Respiratory Exam Respiratory Exam: Clear to Ausculation Bilateral, NORMAL BREATHING PATTERN. absent: Accessory Muscle Use, Chest Wall Tenderness, Wheezes, Respiratory Distress - Cardiovascular Exam Cardiovascular Exam: REGULAR RHYTHM, +S1, +S2 - GI/Abdominal Exam GI & Abdominal Exam: Soft, Normal Bowel Sounds. absent: Distended, Firm, Guarding, Tenderness - Extremities Exam Extremities Exam: Normal Inspection. absent: Calf Tenderness, Pedal Edema - Back Exam Back Exam: NORMAL INSPECTION. absent: CVA tenderness (L), CVA tenderness (R), paraspinal tenderness - Neurological Exam Neurological Exam: Alert, Awake, Oriented x3 Neuro motor strength exam: Left Upper Extremity: 4, Right Upper Extremity: 4, Left Lower Extremity: 4, Right Lower Extremity: 4 - Psychiatric Exam Psychiatric exam: Normal Affect, Normal Mood - Skin Skin Exam: Dry, Intact, Normal Color, Warm Additional comments: NF nodular skin changes Assessment and Plan - Assessment and Plan (Free Text) Assessment: Rhabdomyolysis vast improvement in his mental status and ability to walk today CPK decreasing to 3928 from 8831 yesterday All psych meds on hold except Ativan PRN - likely medication induced NS@200 mls/hour CT head - no acute intracranial abnormality, mild microvascular iacemic changes , stable 6 mm hypodensity in the anterior left frontal lobe which 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 Ativan PRN. Per psych management, Dr. Deng
--- NOTE | 2016-07-31 12:23 | PCM.PYCHPN ---
Psychiatric Progress Note - Psychiatric Progress Note Patient seen today, length of contact: 16 min Patient Chief Complaint: I am feeling more anxious and depressed Problems Identified/Issues Discussed: Patient seen and evaluated, chart reviewed and discussed with the nurse. Patient was transferred to [address] [place] [address]. He complains that his mood has gotten worse since being transfered and being off medications. He remains depressed and remains isolated, confined and withdrawn. He also reports at times anxiety and irritability but denies any suicidal ideation or homicidal ideation. He still appears delusional and paranoid, and worries about many things. His stated that since coming to the floor, she has not been able to stay with him at night , and this gives him a great deal of anxiety. His medications were discontinued due to prior improvement, however, he states that he felt less depressed and anxious while on his medications. Supportive therapy and psychoeducation were given. Medication Change: Yes (d/c risperdal) Medical Record Reviewed: Yes Mental Status Examination - Cognitive Function Orientation: Person, Place, Situation, Time Memory: Intact Attention: WNL Concentration: Poor Association: WNL Fund of Knowledge: Poor - Mood Mood: Depressed, Anxious - Speech Speech: Soft - Formal Thought Process Formal Thought Process: Hallucinations, Delusions, Paranoia - Suicidal Ideation Suicidal Ideation: No - Homicidal Ideation Homicidal Ideation: No Goal/Treatment Plan - Goal/Treatment Plan Need for Continued Stay: Discharge may exacerbated symptoms, Severe functional impairment Progress Toward Problem(s) and Goals/Treatment Plan: Major depressive disorder recurrent severe without psychotic features r/o Schizoaffective disorder depressed type CBT Psychoeducation Supportive therapy and group therapy abilify 10 mg PO QHS gabapentin 300 mg po tid trazodone 100 gm PO QHS D/C Risperdal 2 mg PO QHS Klonopin 0.5 mg PO BID Neurofibromatosis Monitor signs and symptoms
[2016-07-31 14:42] LABS: RBC URINE < 1 /hpf (0-3); URINE BILIRUBIN NEGATIVE (NEGATIVE); URINE BLOOD NEGATIVE (NEGATIVE); URINE COLOR Straw (YELLOW); URINE GLUCOSE (UA) NORMAL (Normal); URINE KETONE NEGATIVE (NEGATIVE); URINE LEUKOCYTE ESTERASE NEG Leu/uL (Negative); URINE PROTEIN NEGATIVE (NEGATIVE); URINE UROBILINOGEN NORMAL mg/dL (0.2-1.0); WBC URINE < 1 /hpf (0-5)
[2016-08-01 08:21] LABS: BASO # 0.1 K/uL (0.0-0.2); BASO % 1.1 % (0.0-2.0); EOS # 0.5 K/uL (0.0-0.7); EOS % 8.4 % (0.0-4.0); HEMATOCRIT 39.3 % (35.0-51.0); LYMPH # 1.7 K/uL (1.0-4.3); LYMPH % 27.8 % (20.0-40.0); MEAN CELL VOLUME 84.5 fL (80.0-94.0); MEAN CORPUSCULAR HEMOGLOBIN 28.7 pg (27.0-31.0); MEAN CORPUSCULAR HGB CONC 33.9 g/dL (33.0-37.0); MEAN PLATELET VOLUME 6.5 fL (7.2-11.7); MONO # 0.5 K/uL (0.0-0.8); MONO % 8.4 % (0.0-10.0); NRBC % 0.1 % (0.0-2.0); RED CELL DISTRIBUTION WIDTH 13.5 % (11.5-14.5); WHITE BLOOD COUNT 6.2 K/uL (4.8-10.8)
[2016-08-01 08:35] LABS: CHLORIDE 103 mmol/L (98-107)
[2016-08-01 08:36] LABS: POTASSIUM 3.8 mmol/L (3.6-5.2); SODIUM 135 mmol/L (132-148)
[2016-08-01 08:38] LABS: ALB/GLOB RATIO 1.3 (1.0-2.1); ALKALINE PHOSPHATASE 43 U/L (38-126); AST/SGOT 45 U/L (17-59); BILIRUBIN,TOTAL 0.6 mg/dL (0.2-1.3); BLOOD UREA NITROGEN 5 mg/dL (9-20); CARBON DIOXIDE 24 mmol/L (22-30); GFR AFRICAN-AMERICAN > 60
[2016-08-01 08:39] LABS: ALT/SGPT 36 U/L (21-72); CALCIUM 8.2 mg/dl (8.6-10.4); GLUCOSE,RANDOM 74 mg/dL (75-110); PHOSPHOROUS 3.3 mg/dL (2.5-4.5)
[2016-08-01] MEDS: Magnesium Oxide 400 mg Tab UD PO SCH (10:49)
[2016-08-01] MEDS: Pantoprazole 40 mg EC Tab PO SCH (10:49)
--- NOTE | 2016-08-01 11:11 | PCM.PYCHPN ---
Psychiatric Progress Note - Psychiatric Progress Note Patient seen today, length of contact: 16 min Patient Chief Complaint: I am feeling more anxious and depressed Problems Identified/Issues Discussed: Patient seen and evaluated, chart reviewed and discussed with the nurse. as per staff CPK level is trending downward. He is on IV fluids and cardiac monitoring. He remains depressed and remains isolated, confined and withdrawn. He also reports at times anxiety and irritability but denies any suicidal ideation or homicidal ideation. He still appears delusional and paranoid, and worries about many things. His was present on the bedside and she was educated and counseled. Supportive therapy and psychoeducation were given. Medication Change: Yes (d/c abilify) Medical Record Reviewed: Yes Mental Status Examination - Cognitive Function Orientation: Person, Place, Situation, Time Memory: Intact Attention: WNL Concentration: Poor Association: WNL Fund of Knowledge: Poor - Mood Mood: Depressed, Anxious - Speech Speech: Soft - Formal Thought Process Formal Thought Process: Hallucinations, Delusions, Paranoia - Suicidal Ideation Suicidal Ideation: No - Homicidal Ideation Homicidal Ideation: No Goal/Treatment Plan - Goal/Treatment Plan Need for Continued Stay: Discharge may exacerbated symptoms, Severe functional impairment Progress Toward Problem(s) and Goals/Treatment Plan: Major depressive disorder recurrent severe without psychotic features r/o Schizoaffective disorder depressed type CBT Psychoeducation Supportive therapy and group therapy DC abilify 10 mg PO QHS gabapentin 300 mg po tid trazodone 100 gm PO QHS Klonopin 0.5 mg PO BID Neurofibromatosis Monitor signs and symptoms
--- NOTE | 2016-08-01 13:39 | CP.PCM.PN ---
<Esme Zelaya - Last Filed: 08/01/16 13:35> Subjective - Date & Time of Evaluation Date of Evaluation: 08/01/16 Time of Evaluation: 07:00 - Subjective Subjective: Patient seen and examined at bedside this morning. He reports weakness and pain in all extremities that greatly improved since yesterday. He is now able to eat and walk around. He denied all other complains such a fever, chills, SOB, cough , chest pain, palpitations. Tolerating diet and having small BM. His was at bedside and anxious to have him transferred back to [facility] floor. Objective - Vital Signs/Intake and Output Vital Signs (last 24 hours): Temp Pulse Resp BP Pulse Ox 98.3 F 77 20 126/72 100 08/01/16 08:54 08/01/16 08:54 08/01/16 08:54 08/01/16 08:54 08/01/16 08:54 Intake and Output: 08/01/16 08/01/16 06:59 18:59 Intake Total 1440 Balance 1440 - Medications Medications: Current Medications Aripiprazole (Abilify) 10 mg PO DAILY COUNT [facility]CLUDES [facility] Last Admin: 07/29/16 18:02 Dose: Not Given Benztropine Mesylate (Cogentin) 1 mg PO HS COUNT [facility]CLUDES [facility] Last Admin: 07/28/16 21:45 Dose: 1 mg Clonazepam (Klonopin) 0.5 mg PO BID COUNT [facility]CLUDES [facility] Last Admin: 07/28/16 17:37 Dose: 0.5 mg Clonazepam (Klonopin) 1 mg PO BID COUNT [facility]CLUD[facility] Last Admin: 08/01/16 09:25 Dose: 1 mg Gabapentin (Neurontin) 300 mg PO TID COUNT [facility]CLUDES [facility] Last Admin: 07/28/16 17:38 Dose: 300 mg Heparin Sodium (Porcine) (Heparin) 5,000 units SC Q12 COUNT [facility]CLUDES [facility] Last Admin: 08/01/16 09:23 Dose: 5,000 units Hydroxyzine HCl (Atarax) 25 mg PO Q4H PRN PRN Reason: Anxiety Last Admin: 07/29/16 00:53 Dose: 25 mg Sodium Chloride (Sodium Chloride 0.9%) 1,000 mls @ 200 mls/hr IV .Q5H COUNT INCLUDES [facility] Last Admin: 07/31/16 21:18 Dose: 200 mls/hr Ibuprofen (Motrin Tab) 600 mg PO Q6H PRN PRN Reason: Pain, moderate (4-7) Last Admin: 07/29/16 23:26 Dose: 600 mg Lorazepam (Ativan) 1 mg PO Q6 PRN PRN Reason: Anxiety Magnesium Oxide (Mag-Ox) 400 mg PO DAILY COUNT [facility]CLUDES [facility] Last Admin: 08/01/16 10:49 Dose: 400 mg Pantoprazole Sodium (Protonix Ec Tab) 40 mg PO DAILY COUNT [facility]CLUDES [facility] Last Admin: 08/01/16 10:49 Dose: 40 mg Tramadol HCl (Ultram) 25 mg PO TID PRN PRN Reason: Pain, moderate (4-7) Trazodone HCl (Desyrel) 100 mg PO HS COUNT [facility]CLUDES [facility] Last Admin: 07/28/16 21:45 Dose: 100 mg Zinc Sulfate (Zinc Sulfate 220 Mg Cap) 220 mg PO DAILY COUNT [facility]CLUD[facility] Last Admin: 08/01/16 09:25 Dose: 220 mg - Labs Labs: 08/01/16 08:11 08/01/16 08:11 PT 12.0 SECONDS (9.7-12.2) 07/29/16 23:40 INR 1.1 07/29/16 23:40 APTT 32 SECONDS (21-34) 07/29/16 23:40 - Constitutional Appears: Non-toxic, No Acute Distress - Head Exam Head Exam: ATRAUMATIC, NORMAL INSPECTION - Eye Exam Eye Exam: EOMI, Normal appearance, PERRL Pupil Exam: NORMAL ACCOMODATION - ENT Exam ENT Exam: Mucous Membranes Moist - Neck Exam Neck Exam: Full ROM - Respiratory Exam Respiratory Exam: Clear to Ausculation Bilateral, NORMAL BREATHING PATTERN. absent: Accessory Muscle Use, Chest Wall Tenderness, Rales, Rhonchi, Wheezes, Respiratory Distress - Cardiovascular Exam Cardiovascular Exam: REGULAR RHYTHM, +S1, +S2 - GI/Abdominal Exam GI & Abdominal Exam: Soft, Normal Bowel Sounds. absent: Distended, Firm, Guarding, Tenderness - Extremities Exam Extremities Exam: Normal Inspection. absent: Calf Tenderness, Pedal Edema - Back Exam Back Exam: NORMAL INSPECTION. absent: CVA tenderness (L), CVA tenderness (R), paraspinal tenderness - Neurological Exam Neurological Exam: Alert, Awake, Oriented x3 Neuro motor strength exam: Left Upper Extremity: 4, Right Upper Extremity: 4, Left Lower Extremity: 4, Right Lower Extremity: 4 - Psychiatric Exam Psychiatric exam: Normal Affect, Normal Mood - Skin Skin Exam: Dry, Intact, Normal Color, Warm Additional comments: skin nodular changes -- chronic Assessment and Plan - Assessment and Plan (Free Text) Assessment: Rhabdomyolysis vast improvement in his mental status and ability to walk today CPK decreasing to 1588 from 3928 yesterday (highest was 8831) - trending downward All psych meds on hold except Ativan PRN - likely medication induced NS@200 mls/hour CT head - no acute intracranial abnormality, mild microvascular iacemic changes , stable 6 mm hypodensity in the anterior left frontal lobe which may represents chronic lacunar infarct DDimer - negative Trop negative UA wnl, repeat UA wnl cbc/tsh wnl 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 Ativan PRN. Per psych management, Dr. Deng Will likely transfer back to psychiatry floor tomorrow pending bed availability. <Samanta Mckenna V - Last Filed: 08/01/16 19:45> Objective - Vital Signs/Intake and Output Vital Signs (last 24 hours): Temp Pulse Resp BP Pulse Ox 98.0 F 75 20 132/78 99 08/01/16 15:00 08/01/16 15:00 08/01/16 15:00 08/01/16 15:00 08/01/16 15:00 - Medications Medications: Current Medications Aripiprazole (Abilify) 10 mg PO DAILY COUNT INCLUDES [facility] Last Admin: 07/29/16 18:02 Dose: Not Given Benztropine Mesylate (Cogentin) 1 mg PO HS COUNT INCLUDES [facility] Last Admin: 07/28/16 21:45 Dose: 1 mg Clonazepam (Klonopin) 0.5 mg PO BID COUNT INCLUDES [facility] Last Admin: 07/28/16 17:37 Dose: 0.5 mg Clonazepam (Klonopin) 1 mg PO BID COUNT [facility]CLUD[facility] Last Admin: 08/01/16 18:00 Dose: 1 mg Gabapentin (Neurontin) 300 mg PO TID COUNT [facility]CLUD[facility] Last Admin: 07/28/16 17:38 Dose: 300 mg Heparin Sodium (Porcine) (Heparin) 5,000 units SC Q12 COUNT [facility]CLUDES [facility] Last Admin: 08/01/16 09:23 Dose: 5,000 units Hydroxyzine HCl (Atarax) 25 mg PO Q4H PRN PRN Reason: Anxiety Last Admin: 07/29/16 00:53 Dose: 25 mg Sodium Chloride (Sodium Chloride 0.9%) 1,000 mls @ 200 mls/hr IV .Q5H COUNT INCLUDES [facility] Last Admin: 08/01/16 15:30 Dose: 200 mls/hr Ibuprofen (Motrin Tab) 600 mg PO Q6H PRN PRN Reason: Pain, moderate (4-7) Last Admin: 07/29/16 23:26 Dose: 600 mg Lorazepam (Ativan) 1 mg PO Q6 PRN PRN Reason: Anxiety Last Admin: 08/01/16 16:20 Dose: 1 mg Magnesium Oxide (Mag-Ox) 400 mg PO DAILY COUNT [facility]CLUDES [facility] Last Admin: 08/01/16 10:49 Dose: 400 mg Pantoprazole Sodium (Protonix Ec Tab) 40 mg PO DAILY COUNT [facility]CLUDES [facility] Last Admin: 08/01/16 10:49 Dose: 40 mg Tramadol HCl (Ultram) 25 mg PO TID PRN PRN Reason: Pain, moderate (4-7) Trazodone HCl (Desyrel) 100 mg PO HS COUNT INCLUDES [facility] Last Admin: 07/28/16 21:45 Dose: 100 mg Zinc Sulfate (Zinc Sulfate 220 Mg Cap) 220 mg PO DAILY COUNT [facility]CLUDES [facility] Last Admin: 08/01/16 09:25 Dose: 220 mg - Labs Labs: 08/01/16 08:11 08/01/16 08:11 PT 12.0 SECONDS (9.7-12.2) 07/29/16 23:40 INR 1.1 07/29/16 23:40 APTT 32 SECONDS (21-34) 07/29/16 23:40 Attending/Attestation - Attestation I have personally seen and examined this patient.: Yes I have fully participated in the care of the patient.: Yes I have reviewed all pertinent clinical information, including history, physical exam and plan: Yes Notes (Text): Patient seen, examined, and case discussed with day-time resident. Patient seen at bedside with at bedside. Patient is clinically depressed reporting mild muscle aches and pains secondary to rhabdomyolsis. Patient is currently on IV fluids and CPK is downtrending. Will continue IV fluids and monitor CPK (~400) given that IV fluids cannot be given on . Possible transfer tomorrow to [facility] pending cpk level. Assessment/Plan 1) Rhabdomyolysis * vast improvement in his mental status and ability to walk today * CPK decreasing to 1588 from 3928 yesterday (highest was 8831) - trending downward * All psych meds on hold except Ativan PRN - likely medication induced * NS@200 mls/hour * CT head - no acute intracranial abnormality, mild microvascular iacemic changes, stable 6 mm hypodensity in the anterior left frontal lobe which may represents chronic lacunar infarct * DDimer - negative * Trop negative * UA wnl, repeat UA wnl * cbc/tsh wnl * f/u urine aldolase and myoglobin * Zinc 220mg PO daily and Magnesium 400mg PO daily * Ultram 25 mg PO TID prn pain 2) Depression with suicidal ideation * Klonopin 1mg PO bid * Ativan 1mg Iv Q 6hour PRn * Psychiatry (Dr. Deng) on board-->help appreciated * Held all psych medications given rhabdomyolysis 3) Prophylactic measure * Heparin 5000 units subq Q12 hours * Protonix 40mg PO daily * NS 200cc/hr Disposition * Trending CPK; continue IV fluids * possible transfer to psych tomorrow given continued improvement on cpk on IV fluids
[2016-08-01] MEDS: Sodium Chloride 0.9% 1,000 ML IV SCH ×3 (13:51→19:45)
[2016-08-01] MEDS: Tramadol 25 mg PO PRN (22:11)
[2016-08-02 08:01] LABS: BASO # 0.1 K/uL (0.0-0.2); EOS # 0.5 K/uL (0.0-0.7); EOS % 7.2 % (0.0-4.0); LYMPH # 1.7 K/uL (1.0-4.3); MEAN CELL VOLUME 84.4 fL (80.0-94.0); MEAN CORPUSCULAR HEMOGLOBIN 28.4 pg (27.0-31.0); MEAN CORPUSCULAR HGB CONC 33.7 g/dL (33.0-37.0); MEAN PLATELET VOLUME 5.9 fL (7.2-11.7); MONO # 0.6 K/uL (0.0-0.8); MONO % 8.8 % (0.0-10.0); NRBC % 0.1 % (0.0-2.0); RED CELL DISTRIBUTION WIDTH 13.8 % (11.5-14.5); WHITE BLOOD COUNT 6.6 K/uL (4.8-10.8)
[2016-08-02 08:34] LABS: CHLORIDE 102 mmol/L (98-107); POTASSIUM 3.8 mmol/L (3.6-5.2); SODIUM 135 mmol/L (132-148)
[2016-08-02 08:37] LABS: ALB/GLOB RATIO 1.3 (1.0-2.1); ALKALINE PHOSPHATASE 40 U/L (38-126); ALT/SGPT 36 U/L (21-72); AST/SGOT 34 U/L (17-59); BILIRUBIN,TOTAL 0.6 mg/dL (0.2-1.3); BLOOD UREA NITROGEN 5 mg/dL (9-20); CALCIUM 8.2 mg/dl (8.6-10.4); CARBON DIOXIDE 24 mmol/L (22-30); GFR AFRICAN-AMERICAN > 60; GLUCOSE,RANDOM 84 mg/dL (75-110); PHOSPHOROUS 3.7 mg/dL (2.5-4.5)
--- NOTE | 2016-08-02 10:00 | CP.PCM.PN ---
<Esme Zelaya - Last Filed: 08/02/16 14:02> Subjective - Date & Time of Evaluation Date of Evaluation: 08/02/16 Time of Evaluation: 07:20 - Subjective Subjective: Patient seen and examined at bedside this morning. He reports weakness and pain in all extremities that greatly improved since yesterday. He is ambulatory and able to tolerate his diet. He denied all other complains such a fever, chills, SOB, cough, chest pain, palpitations. Objective - Vital Signs/Intake and Output Vital Signs (last 24 hours): Temp Pulse Resp BP Pulse Ox 97.9 F 83 20 118/74 98 08/02/16 07:56 08/02/16 07:56 08/02/16 07:56 08/02/16 07:56 08/02/16 07:56 Intake and Output: 08/02/16 08/02/16 06:59 18:59 Intake Total 3900 Balance 3900 - Medications Medications: Current Medications Clonazepam (Klonopin) 1 mg PO BID [facility] Last Admin: 08/01/16 18:00 Dose: 1 mg Gabapentin (Neurontin) 300 mg PO TID [facility] Last Admin: 07/28/16 17:38 Dose: 300 mg Heparin Sodium (Porcine) (Heparin) 5,000 units SC Q12 [facility] Last Admin: 08/01/16 22:08 Dose: 5,000 units Hydroxyzine HCl (Atarax) 25 mg PO Q4H PRN PRN Reason: Anxiety Last Admin: 07/29/16 00:53 Dose: 25 mg Sodium Chloride (Sodium Chloride 0.9%) 1,000 mls @ 200 mls/hr IV .Q5H [facility] Last Admin: 08/01/16 19:45 Dose: 200 mls/hr Ibuprofen (Motrin Tab) 600 mg PO Q6H PRN PRN Reason: Pain, moderate (4-7) Last Admin: 07/29/16 23:26 Dose: 600 mg Lorazepam (Ativan) 1 mg PO Q6 PRN PRN Reason: Anxiety Last Admin: 08/01/16 16:20 Dose: 1 mg Magnesium Oxide (Mag-Ox) 400 mg PO DAILY [facility] Last Admin: 08/01/16 10:49 Dose: 400 mg Pantoprazole Sodium (Protonix Ec Tab) 40 mg PO DAILY [facility] Last Admin: 08/01/16 10:49 Dose: 40 mg Sertraline HCl (Zoloft) 25 mg PO DAILY [facility] Tramadol HCl (Ultram) 25 mg PO TID PRN PRN Reason: Pain, moderate (4-7) Last Admin: 08/01/16 22:11 Dose: 25 mg Trazodone HCl (Desyrel) 100 mg PO HS [facility] Last Admin: 07/28/16 21:45 Dose: 100 mg Zinc Sulfate (Zinc Sulfate 220 Mg Cap) 220 mg PO DAILY [facility] Last Admin: 08/01/16 09:25 Dose: 220 mg - Labs Labs: 08/02/16 07:53 08/02/16 07:53 PT 12.0 SECONDS (9.7-12.2) 07/29/16 23:40 INR 1.1 07/29/16 23:40 APTT 32 SECONDS (21-34) 07/29/16 23:40 - Constitutional Appears: Non-toxic, No Acute Distress - Head Exam Head Exam: NORMAL INSPECTION - Eye Exam Eye Exam: EOMI - ENT Exam ENT Exam: Mucous Membranes Moist - Respiratory Exam Respiratory Exam: Clear to Ausculation Bilateral, NORMAL BREATHING PATTERN. absent: Accessory Muscle Use, Rales, Rhonchi, Wheezes, Respiratory Distress - Cardiovascular Exam Cardiovascular Exam: REGULAR RHYTHM, +S1, +S2 - GI/Abdominal Exam GI & Abdominal Exam: Soft, Normal Bowel Sounds. absent: Distended, Firm, Guarding, Tenderness - Extremities Exam Extremities Exam: Normal Inspection - Back Exam Back Exam: NORMAL INSPECTION. absent: CVA tenderness (L), CVA tenderness (R), paraspinal tenderness - Neurological Exam Neurological Exam: Alert, Awake, Oriented x3 Neuro motor strength exam: Left Upper Extremity: 4, Right Upper Extremity: 4, Left Lower Extremity: 4, Right Lower Extremity: 4 - Psychiatric Exam Psychiatric exam: Depressed, Normal Affect - Skin Skin Exam: Dry, Intact ([place] skin changes), Normal Color, Warm Assessment and Plan - Assessment and Plan (Free Text) Assessment: Rhabdomyolysis * vast improvement in his mental status and ability to walk * CPK decreasing to 809 and 810 from 1588yesterday (highest was 8831) - trending downward * likely medication induced * NS@200 mls/hour * CT head - no acute intracranial abnormality, mild microvascular iacemic changes, stable 6 mm hypodensity in the anterior left frontal lobe which may represents chronic lacunar infarct * DDimer - negative * Trop negative * UA wnl, repeat UA wnl * cbc/tsh wnl * urine aldolase 36 * urine myoglobin <28 * Zinc 220mg PO daily and Magnesium 400mg PO daily * Ultram 25 mg PO TID prn pain Depression * with suicidal ideations on admission * Klonopin 1mg PO bid * Zoloft 25 mg PO daily * Ativan 1mg Iv Q 6hour PRn * Psychiatry (Dr. Deng) on board--> help appreciated * prn medications * Held all psych medications given rhabdomyolysis Prophylactic measure * Heparin 5000 units subq Q12 hours * Protonix 40mg PO daily * NS 200cc/hr Disposition * Will keep on medical floor until CPK lowers (goal ~400), then will consider transfer back to psychiatry floor. <Samanta Mckenna V - Last Filed: 08/02/16 20:46> Objective - Vital Signs/Intake and Output Vital Signs (last 24 hours): Temp Pulse Resp BP Pulse Ox 97.8 F 78 22 128/78 97 08/02/16 16:00 08/02/16 16:00 08/02/16 16:00 08/02/16 16:00 08/02/16 16:00 Intake and Output: 08/02/16 08/03/16 18:59 06:59 Intake Total 1600 Balance 1600 - Medications Medications: Current Medications Clonazepam (Klonopin) 1 mg PO BID [facility] Last Admin: 08/02/16 17:53 Dose: 1 mg Gabapentin (Neurontin) 300 mg PO TID [facility] Last Admin: 08/02/16 17:53 Dose: 300 mg Heparin Sodium (Porcine) (Heparin) 5,000 units SC Q12 [facility] Last Admin: 08/02/16 10:22 Dose: 5,000 units Hydroxyzine HCl (Atarax) 25 mg PO Q4H PRN PRN Reason: Anxiety Last Admin: 07/29/16 00:53 Dose: 25 mg Sodium Chloride (Sodium Chloride 0.9%) 1,000 mls @ 200 mls/hr IV .Q5H [facility] Last Admin: 08/02/16 15:55 Dose: 200 mls/hr Ibuprofen (Motrin Tab) 600 mg PO Q6H PRN PRN Reason: Pain, moderate (4-7) Last Admin: 07/29/16 23:26 Dose: 600 mg Lorazepam (Ativan) 1 mg PO Q6 PRN PRN Reason: Anxiety Last Admin: 08/01/16 16:20 Dose: 1 mg Magnesium Oxide (Mag-Ox) 400 mg PO DAILY [facility] Last Admin: 08/02/16 10:22 Dose: 400 mg Pantoprazole Sodium (Protonix Ec Tab) 40 mg PO DAILY [facility] Last Admin: 08/02/16 10:22 Dose: 40 mg Sertraline HCl (Zoloft) 25 mg PO DAILY [facility] Last Admin: 08/02/16 10:22 Dose: 25 mg Tramadol HCl (Ultram) 25 mg PO TID PRN PRN Reason: Pain, moderate (4-7) Last Admin: 08/01/16 22:11 Dose: 25 mg Trazodone HCl (Desyrel) 100 mg PO HS [facility] Last Admin: 07/28/16 21:45 Dose: 100 mg Zinc Sulfate (Zinc Sulfate 220 Mg Cap) 220 mg PO DAILY [facility] Last Admin: 08/02/16 10:22 Dose: 220 mg - Labs Labs: 08/02/16 07:53 08/02/16 07:53 PT 12.0 SECONDS (9.7-12.2) 07/29/16 23:40 INR 1.1 07/29/16 23:40 APTT 32 SECONDS (21-34) 07/29/16 23:40 Attending/Attestation - Attestation I have personally seen and examined this patient.: Yes I have fully participated in the care of the patient.: Yes I have reviewed all pertinent clinical information, including history, physical exam and plan: Yes Notes (Text): Patient seen, examined, and case discussed with day-time resident. Patient seen at bedside with at bedside. Patient is clinically depressed reporting mild muscle aches and pains secondary to rhabdomyolsis. feeding patient at bedside. Patient is currently on IV fluids and CPK is downtrending. Patient to continue IV fluids and monitor CPK (~400) given that IV fluids cannot be given on . Discussed with psych who are aware, will monitor CPK and if continues to downtrend tomorrow will likely transfer to [facility]. Assessment/Plan 1) Rhabdomyolysis * CPK decreasing to 809 * All psych meds on hold except Ativan PRN - likely medication induced * NS@200 mls/hour * CT head - no acute intracranial abnormality, mild microvascular iacemic changes, stable 6 mm hypodensity in the anterior left frontal lobe which may represents chronic lacunar infarct * DDimer - negative * Trop negative * UA wnl, repeat UA wnl * cbc/tsh wnl * f/u urine aldolase and myoglobin * Zinc 220mg PO daily and Magnesium 400mg PO daily * Ultram 25 mg PO TID prn pain 2) Depression with suicidal ideation * Klonopin 1mg PO bid * Ativan 1mg Iv Q 6hour PRn * Psychiatry (Dr. Deng) on board-->help appreciated * Held all psych medications given rhabdomyolysis * Neurontin 300mg PO tid * Zoloft 50mg PO daily 3) Prophylactic measure * Heparin 5000 units subq Q12 hours * Protonix 40mg PO daily * NS 200cc/hr Disposition * Trending CPK; continue IV fluids * possible transfer to psych tomorrow given continued improvement on cpk on IV fluids
[2016-08-02] MEDS: Magnesium Oxide 400 mg Tab UD PO SCH (10:22)
[2016-08-02] MEDS: Pantoprazole 40 mg EC Tab PO SCH (10:22)
[2016-08-02] MEDS: Sodium Chloride 0.9% 1,000 ML IV SCH ×2 (15:55→21:33)
[2016-08-03] MEDS: Sodium Chloride 0.9% 1,000 ML IV SCH ×3 (01:03→06:38)
[2016-08-03 07:15] LABS: BASO # 0.1 K/uL (0.0-0.2); EOS # 0.4 K/uL (0.0-0.7); EOS % 7.6 % (0.0-4.0); HEMATOCRIT 40.7 % (35.0-51.0); LYMPH # 1.8 K/uL (1.0-4.3); LYMPH % 31.7 % (20.0-40.0); MEAN CELL VOLUME 84.3 fL (80.0-94.0); MEAN CORPUSCULAR HEMOGLOBIN 28.7 pg (27.0-31.0); MEAN PLATELET VOLUME 5.8 fL (7.2-11.7); MONO # 0.5 K/uL (0.0-0.8); MONO % 8.6 % (0.0-10.0); WHITE BLOOD COUNT 5.6 K/uL (4.8-10.8)
[2016-08-03 07:31] LABS: CHLORIDE 102 mmol/L (98-107); POTASSIUM 3.9 mmol/L (3.6-5.2); SODIUM 135 mmol/L (132-148)
[2016-08-03 07:33] LABS: ALB/GLOB RATIO 1.2 (1.0-2.1); ALKALINE PHOSPHATASE 47 U/L (38-126); AST/SGOT 52 U/L (17-59); BILIRUBIN,TOTAL 0.5 mg/dL (0.2-1.3); CARBON DIOXIDE 25 mmol/L (22-30); GFR AFRICAN-AMERICAN > 60; TOTAL PROTEIN 6.3 g/dL (6.3-8.3)
[2016-08-03 07:34] LABS: ALT/SGPT 53 U/L (21-72); BLOOD UREA NITROGEN 4 mg/dL (9-20); CALCIUM 8.6 mg/dl (8.6-10.4); GLUCOSE,RANDOM 81 mg/dL (75-110); MAGNESIUM 2.1 mg/dL (1.6-2.3); PHOSPHOROUS 3.8 mg/dL (2.5-4.5)
[2016-08-03] MEDS: Tramadol 25 mg PO PRN (09:35)
--- NOTE | 2016-08-03 09:54 | CP.PCM.PN ---
<Esme Zelaya - Last Filed: 08/03/16 14:05> Subjective - Date & Time of Evaluation Date of Evaluation: 08/03/16 Time of Evaluation: 07:05 - Subjective Subjective: Patient seen and examined at bedside this morning. He reports minor weakness and pain in all extremities that greatly improved. He is ambulatory and able to tolerate his diet. He denied all other complains such a fever, chills, SOB, cough, chest pain, palpitations. Objective - Vital Signs/Intake and Output Vital Signs (last 24 hours): Temp Pulse Resp BP Pulse Ox 97.9 F 75 20 138/82 97 08/03/16 07:57 08/03/16 07:57 08/03/16 07:57 08/03/16 07:57 08/03/16 07:57 Intake and Output: 08/03/16 08/03/16 06:59 18:59 Intake Total 4020 Output Total 1400 Balance 2620 - Medications Medications: Current Medications Clonazepam (Klonopin) 1 mg PO BID [facility] Last Admin: 08/02/16 17:53 Dose: 1 mg Gabapentin (Neurontin) 300 mg PO TID [facility] Last Admin: 08/02/16 17:53 Dose: 300 mg Heparin Sodium (Porcine) (Heparin) 5,000 units SC Q12 [facility] Last Admin: 08/02/16 21:32 Dose: 5,000 units Hydroxyzine HCl (Atarax) 25 mg PO Q4H PRN PRN Reason: Anxiety Last Admin: 07/29/16 00:53 Dose: 25 mg Sodium Chloride (Sodium Chloride 0.9%) 1,000 mls @ 200 mls/hr IV .Q5H [facility] Last Admin: 08/03/16 06:38 Dose: 200 mls/hr Ibuprofen (Motrin Tab) 600 mg PO Q6H PRN PRN Reason: Pain, moderate (4-7) Last Admin: 07/29/16 23:26 Dose: 600 mg Lorazepam (Ativan) 1 mg PO Q6 PRN PRN Reason: Anxiety Last Admin: 08/01/16 16:20 Dose: 1 mg Magnesium Oxide (Mag-Ox) 400 mg PO DAILY [facility] Last Admin: 08/02/16 10:22 Dose: 400 mg Pantoprazole Sodium (Protonix Ec Tab) 40 mg PO DAILY [facility] Last Admin: 08/02/16 10:22 Dose: 40 mg Sertraline HCl (Zoloft) 25 mg PO DAILY [facility] Last Admin: 08/02/16 10:22 Dose: 25 mg Tramadol HCl (Ultram) 25 mg PO TID PRN PRN Reason: Pain, moderate (4-7) Last Admin: 08/01/16 22:11 Dose: 25 mg Trazodone HCl (Desyrel) 100 mg PO HS [facility] Last Admin: 08/02/16 22:05 Dose: 100 mg Zinc Sulfate (Zinc Sulfate 220 Mg Cap) 220 mg PO DAILY [facility] Last Admin: 08/02/16 10:22 Dose: 220 mg - Labs Labs: 08/03/16 07:03 08/03/16 07:03 PT 12.0 SECONDS (9.7-12.2) 07/29/16 23:40 INR 1.1 07/29/16 23:40 APTT 32 SECONDS (21-34) 07/29/16 23:40 - Constitutional Appears: Non-toxic, No Acute Distress - Head Exam Head Exam: ATRAUMATIC, NORMAL INSPECTION - Eye Exam Eye Exam: EOMI, Normal appearance, PERRL Pupil Exam: NORMAL ACCOMODATION - ENT Exam ENT Exam: Mucous Membranes Moist - Respiratory Exam Respiratory Exam: Clear to Ausculation Bilateral, NORMAL BREATHING PATTERN. absent: Accessory Muscle Use, Respiratory Distress - Cardiovascular Exam Cardiovascular Exam: REGULAR RHYTHM, +S1, +S2 - GI/Abdominal Exam GI & Abdominal Exam: Soft, Normal Bowel Sounds. absent: Distended, Firm, Guarding, Tenderness - Extremities Exam Extremities Exam: Normal Inspection. absent: Calf Tenderness - Back Exam Back Exam: NORMAL INSPECTION. absent: CVA tenderness (L), CVA tenderness (R), paraspinal tenderness - Neurological Exam Neurological Exam: Alert, Awake, Oriented x3 Neuro motor strength exam: Left Upper Extremity: 4, Right Upper Extremity: 4, Left Lower Extremity: 4, Right Lower Extremity: 4 - Psychiatric Exam Psychiatric exam: Normal Affect, Normal Mood - Skin Skin Exam: Dry, Intact, Normal Color, Warm Assessment and Plan - Assessment and Plan (Free Text) Assessment: Rhabdomyolysis * vast improvement in his mental status and ability to walk * CPK decreasing to 399 from 809 yesterday (highest was 8831) - trending downward * likely medication induced * NS@200 mls/hour - discontinued * CT head - no acute intracranial abnormality, mild microvascular iacemic changes, stable 6 mm hypodensity in the anterior left frontal lobe which may represents chronic lacunar infarct * DDimer - negative * Trop negative * UA wnl, repeat UA wnl * cbc/tsh wnl * urine aldolase 36 * urine myoglobin <28 * Zinc 220mg PO daily * Magnesium 400mg PO daily - discontinued * Ultram 25 mg PO TID prn pain Depression * with suicidal ideations on admission * Klonopin 1mg PO bid * Zoloft 25 mg PO daily * Ativan 1mg Iv Q 6hour PRn * Psychiatry (Dr. Deng) on board--> help appreciated * prn medications * Held all psych medications given rhabdomyolysis Prophylactic measure * Heparin 5000 units subq Q12 hours * Protonix 40mg PO daily * NS 200cc/hr Disposition * Will transfer back to Psychiatry floor (Dr. Deng as attending) Medicine team will sign off. Please re-consult as necessary. <Samanta Mckenna V - Last Filed: 08/03/16 23:07> Objective - Vital Signs/Intake and Output Vital Signs (last 24 hours): Temp Pulse Resp BP Pulse Ox 97.9 F 80 20 123/70 97 08/03/16 07:57 08/03/16 15:52 08/03/16 07:57 08/03/16 15:52 08/03/16 07:57 - Medications Medications: Current Medications Benztropine Mesylate (Cogentin) 1 mg PO HS [facility] Clonazepam (Klonopin) 1 mg PO BID [facility] Last Admin: 08/03/16 18:34 Dose: 1 mg Gabapentin (Neurontin) 300 mg PO TID [facility] Last Admin: 08/03/16 18:34 Dose: 300 mg Haloperidol (Haldol) 2 mg PO HS [facility] Hydroxyzine HCl (Atarax) 25 mg PO Q4H PRN PRN Reason: Anxiety Last Admin: 07/29/16 00:53 Dose: 25 mg Ibuprofen (Motrin Tab) 600 mg PO Q6H PRN PRN Reason: Pain, moderate (4-7) Last Admin: 07/29/16 23:26 Dose: 600 mg Lorazepam (Ativan) 1 mg PO Q6 PRN PRN Reason: Anxiety Last Admin: 08/01/16 16:20 Dose: 1 mg Pantoprazole Sodium (Protonix Ec Tab) 40 mg PO DAILY [facility] Last Admin: 08/03/16 10:16 Dose: 40 mg Sertraline HCl (Zoloft) 25 mg PO DAILY [facility] Last Admin: 08/03/16 10:15 Dose: 25 mg Tramadol HCl (Ultram) 25 mg PO TID PRN PRN Reason: Pain, moderate (4-7) Last Admin: 08/03/16 09:35 Dose: 25 mg Trazodone HCl (Desyrel) 100 mg PO HS [facility] Last Admin: 08/02/16 22:05 Dose: 100 mg Zinc Sulfate (Zinc Sulfate 220 Mg Cap) 220 mg PO DAILY [facility] Last Admin: 08/03/16 10:15 Dose: 220 mg - Labs Labs: 08/03/16 07:03 08/03/16 07:03 PT 12.0 SECONDS (9.7-12.2) 07/29/16 23:40 INR 1.1 07/29/16 23:40 APTT 32 SECONDS (21-34) 07/29/16 23:40 Attending/Attestation - Attestation I have personally seen and examined this patient.: Yes I have fully participated in the care of the patient.: Yes I have reviewed all pertinent clinical information, including history, physical exam and plan: Yes Notes (Text): Patient seen, examined, and case discussed with day-time resident. Patient seen on [facility] [facility] following session with physical therapist. Patient reports muscles pains are controlled. Patient's CPK improved to 399. Will discontinue IV fluids. Discussed with psych, patient to be transferred to [facility] for further management of patient's depression. Medicine team to sign off. Thank you for the consult. Please re-consult, PRN. Assessment/Plan 1) Rhabdomyolysis * CPK decreasing to 399 * All psych meds on hold except Ativan PRN - likely medication induced * NS@200 mls/hour * CT head - no acute intracranial abnormality, mild microvascular changes, stable 6 mm hypodensity in the anterior left frontal lobe which may represents chronic lacunar infarct * DDimer - negative * Trop negative * UA wnl, repeat UA wnl * cbc/tsh wnl * f/u urine aldolase and myoglobin * Zinc 220mg PO daily and Magnesium 400mg PO daily * Ultram 25 mg PO TID prn pain 2) Depression with suicidal ideation * Klonopin 1mg PO bid * Ativan 1mg Iv Q 6hour PRn * Psychiatry (Dr. Deng) on board-->help appreciated * Held all psych medications given rhabdomyolysis * Neurontin 300mg PO tid * Zoloft 50mg PO daily 3) Prophylactic measure * Heparin 5000 units subq Q12 hours * Protonix 40mg PO daily * Discontinue IV fluids Disposition * Patient is medically stable. CPK improved while on IV fluids. Discussed with psych, patient to be transferred to [facility] for further management regarding depression.
[2016-08-03] MEDS: Pantoprazole 40 mg EC Tab PO SCH (10:16)
[2016-08-03] MEDS: Magnesium Oxide 400 mg Tab UD PO SCH (10:17)
--- NOTE | 2016-08-03 15:37 | PCM.PYCHPN ---
Psychiatric Progress Note - Psychiatric Progress Note Patient seen today, length of contact: 16 min Patient Chief Complaint: I am feeling anxious Problems Identified/Issues Discussed: Patient seen and evaluated, chart reviewed and discussed with the nurse. Today patient was transferred back to [facility]. Patient reports anxiety, irritability and depressed mood. As per the staff, he remained depressed, isolated, and withdrawn. He still appears delusional and paranoid, and worries about everything. He has started taking medications and denied any side effects. Supportive therapy and psychoeducation were given. Medication Change: Yes (start Haldol) Medical Record Reviewed: Yes Mental Status Examination - Cognitive Function Orientation: Person, Place, Situation, Time Memory: Intact Attention: WNL Concentration: Poor Association: WNL Fund of Knowledge: Poor - Mood Mood: Depressed, Anxious - Speech Speech: Soft - Formal Thought Process Formal Thought Process: Hallucinations, Delusions, Paranoia - Suicidal Ideation Suicidal Ideation: No - Homicidal Ideation Homicidal Ideation: No Goal/Treatment Plan - Goal/Treatment Plan Need for Continued Stay: Discharge may exacerbated symptoms, Severe functional impairment Progress Toward Problem(s) and Goals/Treatment Plan: Major depressive disorder recurrent severe without psychotic features r/o Schizoaffective disorder depressed type CBT Psychoeducation Supportive therapy and group therapy Gabapentin 300 mg po tid trazodone 100 gm PO QHS Haldol 2 mg PO QHS Cogentin 1 mg PO QHS Klonopin 1 mg PO BID Sertraline 25 mg pO Daily Neurofibromatosis Monitor signs and symptoms - Smoking Cessation Smoking Cessation Initiated: No
[2016-08-04] MEDS: Pantoprazole 40 mg EC Tab PO SCH (10:46)
[2016-08-04 11:11] VITALS: O2SAT 99
--- NOTE | 2016-08-04 14:50 | PCM.PYCHPN ---
Psychiatric Progress Note - Psychiatric Progress Note Patient seen today, length of contact: 15 minutes Patient Chief Complaint: I'm feeling little better than before Problems Identified/Issues Discussed: Patient seen. Chart reviewed. Case discussed with staff. Issues related to illness and treatment were discussed with the patient. Patient reported compliant with treatment with no adverse affects. Patient reported feeling little better with the treatment but still has intrusive thoughts which bothers him. Reported his mood is little better but still he is isolative. Staff confirm the above. Patient was found pacing in the hallways after lunch. Patient reported he walks after eating to digest his food. Still patient appeared withdrawn. The time of evaluation, patient was awake alert oriented 3 , no auditory or visual hallucinations, no suicidal ideations or homicidal ideations. Medical Problems: Neurofibromatosis Diagnostic Results: Reviewed Medication Change: Yes (Dose of Zoloft increased to 50 mg) Medical Record Reviewed: Yes Consults ordered or reviewed: Reviewed Mental Status Examination - Cognitive Function Orientation: Person, Place, Situation, Time Memory: Intact Attention: WNL Concentration: WNL Association: [facility] Fund of Knowledge: [facility] Decription of patient's judgement and insights: Fair - Mood Mood: Depressed, Anxious - Affect Affect: Other (Appropriate) - Speech Speech: Soft - Formal Thought Process Formal Thought Process: No Impairment Psychotic Thoughts and Behaviors: None - Suicidal Ideation Suicidal Ideation: No - Homicidal Ideation Homicidal Ideation: No Goal/Treatment Plan - Goal/Treatment Plan Need for Continued Stay: Remain at risks for inpatient hospitalization, Discharge may exacerbated symptoms, Severe functional impairment Progress Toward Problem(s) and Goals/Treatment Plan: Some improvement Patient education Supportive therapy Dose of Zoloft increased to 50 mg from 25 mg Continue rest of the treatment as before Patient needs more time for stabilization Estimated Date of D/C: 08/15/18 - Smoking Cessation Smoking Cessation Initiated: No
[2016-08-04] MEDS ORDERED: Aluminum Hydroxide/Magnesium Hydroxide Susp (30 mL) PO PRN (20:11)
[2016-08-05] MEDS: Pantoprazole 40 mg EC Tab PO SCH (09:50)
--- NOTE | 2016-08-05 13:31 | PCM.PYCHPN ---
Psychiatric Progress Note - Psychiatric Progress Note Patient seen today, length of contact: 15 minutes Patient Chief Complaint: Today again I'm feeling stressed. I wants to go home Problems Identified/Issues Discussed: Patient seen. Chart reviewed. Case discussed with staff. Issues related to illness and treatment were discussed with the patient. Patient reported compliant with treatment with no adverse affects. Patient reported that today again feeling stressed as those bed and intrusive thoughts aren't bothering him today.. Reported his mood is little better but still he is isolative. Staff confirm the above. Still patient appeared withdrawn. At the time of evaluation, patient was awake alert oriented 3, no auditory or visual hallucinations, no suicidal ideations or homicidal ideations. Medical Problems: Neurofibromatosis Diagnostic Results: Reviewed DSM 5 Symptoms Update: Some improvement with treatment Medication Change: No Medical Record Reviewed: Yes Consults ordered or reviewed: Reviewed Mental Status Examination - Cognitive Function Orientation: Person, Place, Situation, Time Memory: Intact Attention: WNL Concentration: WNL Association: [facility] Fund of Knowledge: [facility] Decription of patient's judgement and insights: Fair - Mood Mood: Depressed, Anxious - Affect Affect: Other (Appropriate) - Speech Speech: Soft - Formal Thought Process Formal Thought Process: No Impairment Psychotic Thoughts and Behaviors: None - Suicidal Ideation Suicidal Ideation: No - Homicidal Ideation Homicidal Ideation: No Goal/Treatment Plan - Goal/Treatment Plan Need for Continued Stay: Remain at risks for inpatient hospitalization, Discharge may exacerbated symptoms, Severe functional impairment Progress Toward Problem(s) and Goals/Treatment Plan: Patient education Supportive therapy Continue treatment as before Patient needs more time for stabilization Estimated Date of D/C: 08/15/18 - Smoking Cessation Smoking Cessation Initiated: No
[2016-08-05] MEDS ORDERED: Bisacodyl 5mg EC Tab PO PRN (18:08)
[2016-08-05] MEDS ORDERED: Bisacodyl 5mg EC Tab PO ONE (18:13)
[2016-08-06] MEDS: Pantoprazole 40 mg EC Tab PO SCH (10:09)
--- NOTE | 2016-08-06 16:26 | PCM.PYCHPN ---
Psychiatric Progress Note - Psychiatric Progress Note Patient seen today, length of contact: 15 minutes Patient Chief Complaint: I am stressed again. Problems Identified/Issues Discussed: Patient seen. Chart reviewed. Case discussed with staff. Issues related to illness and treatment were discussed with the patient. Patient reported compliant with treatment with no adverse affects. Patient reported that today again feeling stressed as those sathish and intrusive thoughts aren't bothering him today.. Reported his mood is little better but still he is isolative. Staff confirm the above. Still patient appeared withdrawn. At the time of evaluation, patient was awake alert oriented 3, no auditory or visual hallucinations, no suicidal ideations or homicidal ideations. Medical Problems: Neurofibromatosis Diagnostic Results: Reviewed DSM 5 Symptoms Update: Some improvement with treatment Medication Change: No Medical Record Reviewed: Yes Consults ordered or reviewed: Reviewed Mental Status Examination - Cognitive Function Orientation: Person, Place, Situation, Time Memory: Intact Attention: WNL Concentration: WNL Association: [facility] Fund of Knowledge: [facility] Decription of patient's judgement and insights: Fair - Mood Mood: Depressed, Anxious - Affect Affect: Blunted - Speech Speech: Soft - Formal Thought Process Formal Thought Process: No Impairment Psychotic Thoughts and Behaviors: None - Suicidal Ideation Suicidal Ideation: No - Homicidal Ideation Homicidal Ideation: No Goal/Treatment Plan - Goal/Treatment Plan Need for Continued Stay: Remain at risks for inpatient hospitalization, Discharge may exacerbated symptoms, Severe functional impairment Progress Toward Problem(s) and Goals/Treatment Plan: Patient education Supportive therapy Continue treatment as before Patient needs more time for stabilization Estimated Date of D/C: 08/15/18 - Smoking Cessation Smoking Cessation Initiated: No
--- NOTE | 2016-08-07 08:48 | PCM.PYCHPN ---
Psychiatric Progress Note - Psychiatric Progress Note Patient seen today, length of contact: 15 minutes Patient Chief Complaint: I am feeling anxious Problems Identified/Issues Discussed: Patient seen and evaluated, chart reviewed and discussed with the nurse. Today staff reports pt is feeling stiff and his gate is abnormal. He anxiety, irritability and agitation. He also reports depressed mood, and at times feelings of hopelessness and helplessness. He reports poor sleep. He still appears delusional and paranoid, and worries about everything. He has started taking medications and denied any side effects. Supportive therapy and psychoeducation were given. Medication Change: Yes (d/c haldol) Medical Record Reviewed: Yes Mental Status Examination - Cognitive Function Orientation: Person, Place, Situation, Time Memory: Intact Attention: WNL Concentration: Poor Association: Loose Fund of Knowledge: Poor - Mood Mood: Depressed, Anxious - Affect Affect: Constricted, Blunted - Speech Speech: Soft - Formal Thought Process Formal Thought Process: Delusions, Loosening of associations - Suicidal Ideation Suicidal Ideation: No - Homicidal Ideation Homicidal Ideation: No Goal/Treatment Plan - Goal/Treatment Plan Need for Continued Stay: Remain at risks for inpatient hospitalization, Discharge may exacerbated symptoms, Severe functional impairment Progress Toward Problem(s) and Goals/Treatment Plan: Major depressive disorder recurrent severe without psychotic features r/o Schizoaffective disorder depressed type CBT Psychoeducation Supportive therapy and group therapy Gabapentin 300 mg po tid trazodone 100 gm PO QHS D/C Haldol 2 mg PO QHS D/C Cogentin 1 mg PO QHS Klonopin 1 mg PO BID Sertraline 100 mg pO Daily Neurofibromatosis Monitor signs and symptoms Estimated Date of D/C: 08/15/18 - Smoking Cessation Smoking Cessation Initiated: No
[2016-08-07] MEDS: Pantoprazole 40 mg EC Tab PO SCH (09:53)
[2016-08-08] MEDS: Pantoprazole 40 mg EC Tab PO SCH (09:59)
--- NOTE | 2016-08-08 11:40 | PCM.PYCHPN ---
Psychiatric Progress Note - Psychiatric Progress Note Patient seen today, length of contact: 15 minutes Patient Chief Complaint: I am feeling anxious Problems Identified/Issues Discussed: Patient seen and evaluated, chart reviewed and discussed with the nurse. As per the staff, patient appears less anxious and less paranoid. His gait is getting better and he is no more limping. However patient reports anxiety and irritability. He still appears a bit suspicious and delusional. He is compliant with the medications and denies any side effects. Supportive therapy and psychoeducation were given. Medication Change: Yes (decrease klonopoin, start Seroquel ) Medical Record Reviewed: Yes Mental Status Examination - Cognitive Function Orientation: Person, Place, Situation, Time Memory: Intact Attention: WNL Concentration: Poor Association: Loose Fund of Knowledge: Poor - Mood Mood: Depressed, Anxious - Affect Affect: Constricted, Blunted - Speech Speech: Soft - Formal Thought Process Formal Thought Process: Delusions, Loosening of associations - Suicidal Ideation Suicidal Ideation: No - Homicidal Ideation Homicidal Ideation: No Goal/Treatment Plan - Goal/Treatment Plan Need for Continued Stay: Remain at risks for inpatient hospitalization, Discharge may exacerbated symptoms, Severe functional impairment Progress Toward Problem(s) and Goals/Treatment Plan: Major depressive disorder recurrent severe without psychotic features r/o Schizoaffective disorder depressed type CBT Psychoeducation Supportive therapy and group therapy Gabapentin 300 mg po tid trazodone 100 gm PO QHS Klonopin 0.5 mg PO BID Sertraline 200 mg pO Daily Seroquel 50 mg hs Neurofibromatosis Monitor signs and symptoms Estimated Date of D/C: 08/15/18 - Smoking Cessation Smoking Cessation Initiated: No
[2016-08-09] MEDS: Pantoprazole 40 mg EC Tab PO SCH (09:46)
--- NOTE | 2016-08-09 09:51 | PCM.PYCHPN ---
Psychiatric Progress Note - Psychiatric Progress Note Patient seen today, length of contact: 16 min Patient Chief Complaint: 'I am feeling anxious' Problems Identified/Issues Discussed: Patient seen and evaluated, chart reviewed and discussed with the nurse. Today pt appeared delusional and suspicious. However he reports improvement in his sleep and anxiety. He remains depressed and isolated. He is confined to his bed and still complains of shakes. Today pt admitted of having bad thoughts. However he is taking medication and denies any side effects. Supportive therapy and psychoeducation were given. Medication Change: Yes (increase Seroquel, and decrease gabapentin) Medical Record Reviewed: Yes Mental Status Examination - Cognitive Function Orientation: Person, Place, Situation, Time Memory: Intact Attention: WNL Concentration: Poor Association: WNL Fund of Knowledge: Poor - Mood Mood: Depressed, Anxious - Affect Affect: Constricted, Blunted - Speech Speech: Soft - Formal Thought Process Formal Thought Process: Hallucinations, Delusions, Paranoia - Suicidal Ideation Suicidal Ideation: No - Homicidal Ideation Homicidal Ideation: No Goal/Treatment Plan - Goal/Treatment Plan Need for Continued Stay: Discharge may exacerbated symptoms, Severe functional impairment Progress Toward Problem(s) and Goals/Treatment Plan: Major depressive disorder recurrent severe with psychotic features CBT Psychoeducation Supportive therapy and group therapy Zoloft 200 mg by mouth daily gabapentin 300 mg po tid trazodone 100 gm PO QHS Klonopin 0.5 mg PO BID Seroquel 50 mg PO QHS Neurofibromatosis Monitor signs and symptoms Estimated Date of D/C: 08/15/18
--- NOTE | 2016-08-09 14:03 | PCM.PYCHPN ---
Psychiatric Progress Note - Psychiatric Progress Note Patient seen today, length of contact: 16 min Patient Chief Complaint: I am feeling more anxious and depressed Problems Identified/Issues Discussed: Patient seen and evaluated, chart reviewed and discussed with the nurse. patient still reports of anxiety and irritability. He remains depressed and isolated. He is confined to his bed and still complains of shakes. As per the , he is still complaining of bad thoughts and anxiety. he is delusional and internally preoccupied. However he is taking medication and denies any side effects. Supportive therapy and psychoeducation were given. Medication Change: Yes (start zoloft) Medical Record Reviewed: Yes Mental Status Examination - Cognitive Function Orientation: Person, Place, Situation, Time Memory: Intact Attention: WNL Concentration: Poor Association: WNL Fund of Knowledge: Poor - Mood Mood: Depressed, Anxious - Affect Affect: Constricted, Blunted - Speech Speech: Soft - Formal Thought Process Formal Thought Process: Hallucinations, Delusions, Paranoia - Suicidal Ideation Suicidal Ideation: No - Homicidal Ideation Homicidal Ideation: No Goal/Treatment Plan - Goal/Treatment Plan Need for Continued Stay: Discharge may exacerbated symptoms, Severe functional impairment Progress Toward Problem(s) and Goals/Treatment Plan: Major depressive disorder recurrent severe without psychotic features r/o Schizoaffective disorder depressed type CBT Psychoeducation Supportive therapy and group therapy Zoloft 50 mg by mouth daily gabapentin 300 mg po tid trazodone 100 gm PO QHS Klonopin 0.5 mg PO BID Neurofibromatosis Monitor signs and symptoms Estimated Date of D/C: 08/15/18
[2016-08-10] MEDS: Pantoprazole 40 mg EC Tab PO SCH (09:34)
--- NOTE | 2016-08-10 12:29 | PCM.PYCHPN ---
Psychiatric Progress Note - Psychiatric Progress Note Patient seen today, length of contact: 16 min Patient Chief Complaint: I am feeling more anxious and depressed Problems Identified/Issues Discussed: Patient seen and evaluated, chart reviewed and discussed with the nurse. As per the staff, pt regressed last night and started complaining of anxiety and irritability. He couldn't sleep last night and remained delusional and paranoid. He appeared unkempt and disheveled. However, he has started walking and reports improvement in his gait. He is taking medication and denies any side effects. Supportive therapy and psychoeducation were given. Medication Change: Yes (increase Seroquel, and increase gabapentin) Medical Record Reviewed: Yes Mental Status Examination - Cognitive Function Orientation: Person, Place, Situation, Time Memory: Intact Attention: Poor Concentration: Poor Association: WNL Fund of Knowledge: Poor - Mood Mood: Depressed, Anxious - Affect Affect: Constricted, Blunted - Speech Speech: Soft - Formal Thought Process Formal Thought Process: Hallucinations, Delusions, Paranoia - Suicidal Ideation Suicidal Ideation: No - Homicidal Ideation Homicidal Ideation: No Goal/Treatment Plan - Goal/Treatment Plan Need for Continued Stay: Discharge may exacerbated symptoms, Severe functional impairment Progress Toward Problem(s) and Goals/Treatment Plan: Major depressive disorder recurrent severe with psychotic features CBT Psychoeducation Supportive therapy and group therapy Zoloft 200 mg by mouth daily Gabapentin 400 mg po tid Trazodone 100 gm PO QHS Klonopin 0.5 mg PO BID Seroquel 100 mg PO QHS Neurofibromatosis Monitor signs and symptoms Estimated Date of D/C: 08/15/18
[2016-08-11] MEDS: Pantoprazole 40 mg EC Tab PO SCH (09:14)
--- NOTE | 2016-08-11 16:25 | PCM.PYCHPN ---
Psychiatric Progress Note - Psychiatric Progress Note Patient seen today, length of contact: 15 minutes Patient Chief Complaint: I'm feeling about 40% better Problems Identified/Issues Discussed: Patient seen. Chart reviewed. Case discussed with staff. Issues related to illness and treatment were discussed with the patient. Patient reported compliant with treatment with no adverse affects. Patient reported feeling about 40% better. Walks better. Still patient appeared withdrawn. At the time of evaluation, patient was awake alert oriented 3, no auditory or visual hallucinations, no suicidal ideations or homicidal ideations. Medical Problems: Neurofibromatosis Diagnostic Results: Reviewed DSM 5 Symptoms Update: Improvement with treatment Medication Change: No Medical Record Reviewed: Yes Consults ordered or reviewed: Reviewed Mental Status Examination - Cognitive Function Orientation: Person, Place, Situation, Time Memory: Intact Attention: WNL Concentration: WNL Association: WNL Fund of Knowledge: [facility] Decription of patient's judgement and insights: Fair - Mood Mood: Depressed (Less than before), Anxious - Affect Affect: Blunted - Speech Speech: Appropriate - Formal Thought Process Formal Thought Process: No Impairment - Suicidal Ideation Suicidal Ideation: No - Homicidal Ideation Homicidal Ideation: No Goal/Treatment Plan - Goal/Treatment Plan Need for Continued Stay: Discharge may exacerbated symptoms, Severe functional impairment Progress Toward Problem(s) and Goals/Treatment Plan: Patient education Supportive therapy Continue treatment as before Patient needs more time for stabilization Estimated Date of D/C: 08/15/18 - Smoking Cessation Smoking Cessation Initiated: No
[2016-08-12] MEDS: Pantoprazole 40 mg EC Tab PO SCH (09:31)
--- NOTE | 2016-08-12 15:17 | PCM.PYCHPN ---
Psychiatric Progress Note - Psychiatric Progress Note Patient seen today, length of contact: 15 minutes Patient Chief Complaint: I'm feeling about 60% better Problems Identified/Issues Discussed: Patient seen. Chart reviewed. Case discussed with staff. Issues related to illness and treatment were discussed with the patient. Patient reported compliant with treatment with no adverse affects. Patient reported feeling about 60% better. Walks better. Staff reported that patient took shower independently and also looks better. At the time of evaluation, patient was awake alert oriented 3, no auditory or visual hallucinations, no suicidal ideations or homicidal ideations. Medical Problems: Neurofibromatosis Diagnostic Results: Reviewed DSM 5 Symptoms Update: Improving with treatment Medication Change: No Medical Record Reviewed: Yes Consults ordered or reviewed: Reviewed Mental Status Examination - Cognitive Function Orientation: Person, Place, Situation, Time Memory: Intact Attention: WNL Concentration: WNL Association: WNL Fund of Knowledge: WN Decription of patient's judgement and insights: Fair - Mood Mood: Anxious - Affect Affect: Blunted - Speech Speech: Appropriate - Formal Thought Process Formal Thought Process: No Impairment - Suicidal Ideation Suicidal Ideation: No - Homicidal Ideation Homicidal Ideation: No Goal/Treatment Plan - Goal/Treatment Plan Need for Continued Stay: Remain at risks for inpatient hospitalization, Discharge may exacerbated symptoms, Severe functional impairment Progress Toward Problem(s) and Goals/Treatment Plan: Patient education Supportive therapy Continue treatment as before Patient needs more time for stabilization Estimated Date of D/C: 08/15/18 - Smoking Cessation Smoking Cessation Initiated: No
[2016-08-13 07:15] VITALS: RESP 19
[2016-08-13] MEDS: Pantoprazole 40 mg EC Tab PO SCH (09:53)
--- NOTE | 2016-08-13 10:01 | PCM.PYCHPN ---
Psychiatric Progress Note - Psychiatric Progress Note Patient seen today, length of contact: 15 minutes Patient Chief Complaint: 'I am feeling much better' Problems Identified/Issues Discussed: Patient seen and evaluated, chart reviewed and discussed with the nurse. Today pt reports improvement in his anxiety and depression. As per the staff, patient appears much better and he reports improvement in his sleep. He no longer has any difficult in walking. However, he still appears depressed, isolated and withdrawn. He denies any auditory or visual hallucinations or any psychotic symptoms. He is taking medications and denies any side effects. Supportive therapy and psychoeducation were given. Medication Change: Yes (increase Seroquel, start remeron) Medical Record Reviewed: Yes Mental Status Examination - Cognitive Function Orientation: Person, Place, Situation, Time Memory: Intact Attention: WNL Concentration: Poor Association: Loose Fund of Knowledge: WNL - Mood Mood: Anxious - Affect Affect: Blunted - Speech Speech: Appropriate - Formal Thought Process Formal Thought Process: Paranoia - Suicidal Ideation Suicidal Ideation: No - Homicidal Ideation Homicidal Ideation: No Goal/Treatment Plan - Goal/Treatment Plan Need for Continued Stay: Remain at risks for inpatient hospitalization, Discharge may exacerbated symptoms, Severe functional impairment Progress Toward Problem(s) and Goals/Treatment Plan: Major depressive disorder recurrent severe with psychotic features CBT Psychoeducation Supportive therapy and group therapy Zoloft 200 mg by mouth daily Gabapentin 400 mg po tid Trazodone 100 gm PO QHS Klonopin 0.5 mg PO BID Remeron 15 mg by mouth daily at bedtime Seroquel 100 mg PO daily Seroquel 200 mg PO QHS Neurofibromatosis Monitor signs and symptoms Estimated Date of D/C: 08/15/18
--- NOTE | 2016-08-14 15:53 | PCM.PYCHPN ---
Psychiatric Progress Note - Psychiatric Progress Note Patient seen today, length of contact: 15 minutes Patient Chief Complaint: I am feeling much better Problems Identified/Issues Discussed: Patient seen and evaluated, chart reviewed and discussed with the nurse. As per staff patient is improving. He is stepping out of his room without any difficulty and his gait is improving as well. Patient reports improvement in his mood and appetite. He also reports improvement in the 'bad thoughts'. He is taking medication and denies any side effects. Supportive therapy and psychoeducation were given. Medication Change: Yes ([employer]) Medical Record Reviewed: Yes Mental Status Examination - Cognitive Function Orientation: Person, Place, Situation, Time Memory: Intact Attention: WNL Concentration: WNL Association: WNL Fund of Knowledge: Poor - Mood Mood: Depressed, Anxious - Affect Affect: Depressed - Speech Speech: Appropriate - Formal Thought Process Formal Thought Process: Paranoia - Suicidal Ideation Suicidal Ideation: No - Homicidal Ideation Homicidal Ideation: No Goal/Treatment Plan - Goal/Treatment Plan Need for Continued Stay: Remain at risks for inpatient hospitalization, Discharge may exacerbated symptoms, Severe functional impairment Progress Toward Problem(s) and Goals/Treatment Plan: Major depressive disorder recurrent severe with psychotic features CBT Psychoeducation Supportive therapy and group therapy Zoloft 200 mg by mouth daily Gabapentin 400 mg po tid Trazodone 100 gm PO QHS d/c Klonopin 0.5 mg PO BID d/c Remeron 15 mg by mouth daily at bedtime Seroquel 100 mg PO daily Seroquel 300 mg PO QHS Neurofibromatosis Monitor signs and symptoms Estimated Date of D/C: 08/15/18 - Smoking Cessation Smoking Cessation Initiated: No
[2016-08-15 08:03] VITALS: TEMP 97.9
--- NOTE | 2016-08-15 09:36 | PCM.PYCHDC ---
Mental Status Examination - Mental Status Examination Orientation: Person, Place, Situation, Time Memory: Intact Mood: Neutral Affect: Constricted Speech: Soft Attention: WNL Concentration: WNL Association: WNL Fund of Knowledge: WNL Formal Thought Process: No Impairment Description of patient's judgement and insight: good, fair Psychotic Thoughts and Behaviors: denies any AVH Suicidal Ideation: No Current Homicidal Ideation?: No Discharge Summary - Discharge Note Reason for Hospitalization: Patient is a 55 years old [place] male, who is and lives with his . He doesn't have any children. Patient was escorted to the hospital by because he was feeling extremely depressed, and delusional. As per the he has been taking to himself for the past 12 hours and telling himself to kill himself. Pt appeared disorganized and internally preoccupied. He remained superficially cooperative abut guarded about the details. As per the , he has not been able to sleep for the past 5 days and has been talking to himself continuously. He has become extremely depressed, isolative, and delusional since the past 2 weeks. It seems like he is having a conversation with an imaginary person. He sees Dr. Prakash every two months, most recently few weeks ago. He says the medications he is prescribing for depression, anxiety, and sleep are not working. He does not know the name of the medications. Patient feels like he wants to because he does not want to suffer anymore. He has never had any suicide attempts and has no plan. However, pt remained guarded about the voices but says he gets bad thoughts about the God. He thinks that he gets bad thoughts from devils and started reiterating about the bad thoughts. Patient was hospitalized last year to rule out interracial complications of his medical condition, neurofibromatosis. Patient denies any visual hallucinations or paranoid thoughts. Patient does not drink, smoke or use any illicit drugs. Patient denies any homicidal ideation. Consultations:: List each consultation separately and include: 1. Reason for request. 2. Findings. 3. Follow-up Summary of Hospital Course include:: 1. Description of specific treatment plan utilized for patients during their course of treatmen. 2. Summarize the time- course for resolution of acute symptoms and/or regressed behaviors. 3. Describe issues identified and worked on during hospitalization. 4. Describe medication utilized. 5. Describe medical problems identified and treated. 6. Reassessment of suicide risk Summary of Hospital Course: During the course of his stay, patient (pt) started progressively improving and he no longer remained irritable, depressed, suicidal and paranoid. His mood and paranoia were improved and he started attending groups and meetings and started socializing. Patient denied any feelings of hopelessness, helplessness, and worthlessness, denied any problem with the sleep or appetite, denied suicidal ideation or homicidal ideation. Pt denied any auditory or visual hallucinations. Some changes were made in his current medications and patient was discharged on following medications. He tolerated these medications very well and denied any side effects. - Final Diagnosis (DSM 5) Condition upon Discharge: STABLE DSM 5: Major depressive disorder recurrent severe with psychotic features Disposition: HOME/ ROUTINE Follow-up Treatment Plan: Education: Pt was educated and counseled about the risks and benefits of taking and not taking medications. Pt was educated and counseled about the risks of drinking and abusing drugs. Pt was educated and counseled to go to the ER or call 911 if pt develop suicidal ideation or homicidal ideation, worsening of symptoms or severe side effects of the meds. Prescriptions/Medication Reconciliation: Gabapentin [Neurontin] 400 mg PO TID #90 cap QUEtiapine [Seroquel] 300 mg PO HS #30 tab QUEtiapine [Seroquel] 100 mg PO DAILY #30 tab Sertraline [Zoloft] 100 mg PO DAILY #60 tab traZODone [Desyrel] 100 mg PO HS PRN #30 tab PRN Reason: Insomnia - Smoking Cessation Smoking Cessation Medication prescribed: No - Antipsychotic Medications Pt discharged on 2 or more routine antipsychotic medications: No
[2016-08-15 15:38] VITALS: BP 107/71; PULSE 108
== END 2016-08-15 17:20 | disposition home or self-care (01) | DRG 430 ==
LOC: C.ER 15:07 → C.5E 17:16 → C.9I 07-29 10:52 → C.3T 07-31 00:10 → C.5E 08-03 13:59
PROVIDERS: ADMIT Psychiatry & Neurology Psychiatry; ATTEND Psychiatry & Neurology Psychiatry
PROC: GZHZZZZ Group Psychotherapy (ICD-10-PCS; principal; 2016-07-24)
PROC: GZ58ZZZ Individual Psychotherapy, Cognitive-Behavioral (ICD-10-PCS; 2016-07-24)
DX: F33.3 Major depressive disorder, recurrent, severe with psychotic symptoms (principal); M62.82 Rhabdomyolysis; R45.851 Suicidal ideations; Q85.00 Neurofibromatosis, unspecified; E78.00 Pure hypercholesterolemia, unspecified; F41.9 Anxiety disorder, unspecified; G47.00 Insomnia, unspecified

== ENCOUNTER 2018-05-07 09:49 | Outpatient (CLI) | payer MEDICARE, MEDICAID | END 2018-05-07 09:50 | disposition home or self-care (01) | LOC: C.MRIC 09:50 | DX: M51.16 Intervertebral disc disorders with radiculopathy, lumbar region (principal) ==

== ENCOUNTER 2018-07-01 09:05 | Outpatient (CLI) | payer MEDICARE | END 2018-07-01 09:06 | disposition home or self-care (01) | LOC: C.USIC 09:05 ==